=== PATIENT | male | born 1970 | race Asian ===

== ENCOUNTER 2017-06-06 01:50 | Emergency (ER) | payer MEDICAID ==
[~2017-06-06] VITALS: Ht 170.2 cm; Wt 77.1 kg
[~2017-06-06 01:50] MED LIST: ACETAMINOPHEN-1 EAC1 ORAL; HUMATE P IV; KEFLEX500 MG ORAL; NORCO 5-325 TA1 EACH ORAL; RANITIDINE HCL150 MG ORAL
[2017-06-06] MEDS ORDERED: Morphine Sulfate 4mg/ml Inj IVP ONE (02:15)
--- NOTE | 2017-06-06 02:16 | Emergency Room Report ---
History of Present Illness General Chief Complaint: Abdominal Pain Source: Patient Present Illness HPI Is a 47 year-old [place] male with chief complaint of epigastric pain onset this afternoon/evening. Radiate to his back. Has nausea and vomiting. No diarrhea. Pain is 10 out of 10. Denies any fever or chills. Denies any chest pain. 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 Review of Systems Eye: Denies: eye pain, blurred vision ENT: Denies: ear pain, nose congestion, throat swelling Respiratory: Denies: cough, shortness of breath Cardiovascular: Denies: chest pain, palpitations Gastrointestinal: Reports: abdominal pain, nausea, vomiting, Denies: diarrhea Musculoskeletal: Denies: back pain, joint pain Skin: Denies: rash Neurological: Denies: headache, numbness Endocrine: Denies: increased thirst, increased urine Hematologic/Lymphatic: Denies: easy bruising All Other Systems: negative except mentioned in HPI Physical Exam Vital Signs Date Time Temp Pulse Resp B/P (MAP) Pulse Ox O2 Delivery O2 Flow Rate FiO2 06/06/17 01:56 97.2 73 16 114/81 99 Room Air vitals normal Sp02 EP Interpretation: reviewed, normal General Appearance: well appearing, no apparent distress, alert Head: normocephalic, atraumatic Eyes: bilateral eye PERRL, bilateral eye EOMI ENT: hearing grossly normal, normal pharynx Neck: full range of motion, supple, no meningismus Respiratory: chest non-tender, lungs clear, normal breath sounds Cardiovascular #1: regular rate, rhythm, no murmur Gastrointestinal: normal bowel sounds, no mass, no organomegaly, no bruit, non- distended, tenderness - Epigastric and right upper quadrant Musculoskeletal: back normal, gait/station normal, normal range of motion Psychiatric: mood/affect normal Skin: warm/dry Medical Decision Making Diagnostic Impression: Primary Impression: Cholelithiasis Qualified Codes: K80.21 - Calculus of gallbladder without cholecystitis with obstruction ER Course Patient presents with right upper quadrant pain. He has gallstones. Elevated bilirubin and AST and ALT. This point toward possible obstruction and irritation. He may have passed a small stone already because he is pain-free now. Because of pain resolved we'll discharge home. No evidence of cholecystitis. No evidence of an acute abdomen. Lab Results Impression labs with elevated liver enzyme CT/MRI/US Diagnostic Results CT/MRI/US Diagnostic Results : Imaging Test Ordered: CT abdomen and pelvis Impression Read by radiologist. Multiple gallstone. Fatty liver. Last Vital Signs Date Time Temp Pulse Resp B/P (MAP) Pulse Ox O2 Delivery O2 Flow Rate FiO2 06/06/17 01:56 97.2 73 16 114/81 99 Room Air Status: improved Disposition: HOME, SELF-CARE Condition: Stable Scripts Hydrocodone/Acetaminophen 5-325* (HYDROCODONE/ACETAMINOPHEN 5-325*) 1 Each Tablet 1 TAB ORAL Q6H Y for For Pain, #15 TAB 0 Refills Prov: RIVERA CLARKE M.D. 06/06/17 Additional Instructions: Followup with your DrBenson within 5-7 days. Return for increasing pain, fever, vomiting or any concern. RIVERA CLARKE M.D. Jun 06, 2017 02:16
[2017-06-06 02:38] VITALS: BP 114/81
[2017-06-06 02:50] LABS: BASOPHILS % (AUTO) 0.5 % (0.0-2.0); EOSINOPHILS % (AUTO) 0.7 % (0.0-3.0); HEMATOCRIT 50.1 % (42.0-52.0); HEMOGLOBIN 16.5 G/DL (14.2-18.0); LYMPHOCYTES % (AUTO) 28.6 % (20.0-45.0); MEAN CORPUSCULAR VOLUME 85 FL (80-99); MONOCYTES % (AUTO) 9.5 % (1.0-10.0); NEUTROPHILS % (AUTO) 60.8 % (45.0-75.0); PLATELET COUNT 200 K/UL (150-450); RED BLOOD COUNT 5.92 M/UL (4.70-6.10); WHITE BLOOD COUNT 5.6 K/UL (4.8-10.8)
[2017-06-06 02:50] LABS: APPEARANCE,URINE CLEAR; BILIRUBIN, URINE NEGATIVE (NEGATIVE); GLUCOSE, URINE (UA) NEGATIVE (NEGATIVE); KETONES,URINE NEGATIVE (NEGATIVE); LEUKOCYTE ESTERASE ,URINE NEGATIVE (NEGATIVE); NITRITE,URINE NEGATIVE (NEGATIVE); PH,URINE 6.5 (4.5-8.0); PROTEIN,URINE 1+ (NEGATIVE); UROBILINOGEN,URINE 4 MG/DL (0.0-1.0)
[2017-06-06 02:57] LABS: COLOR,URINE YELLOW
[2017-06-06 03:04] LABS: ANION GAP 9 mmol/L (5-15); BLOOD UREA NITROGEN 13 mg/dL (7-18); CARBON DIOXIDE 26 MMOL/L (21-32); CHLORIDE 105 MMOL/L (98-107); CREATININE 0.8 MG/DL (0.55-1.30); POTASSIUM 4.1 MMOL/L (3.5-5.1); SODIUM 140 MMOL/L (136-145)
[2017-06-06 03:13] LABS: ALANINE AMINOTRANSFERASE 385 U/L (12-78); ALKALINE PHOSPHATASE 109 U/L (46-116); ASPARTATE AMINO TRANSFERASE 425 U/L (15-37); BILIRUBIN,TOTAL 1.8 MG/DL (0.2-1.0)
[2017-06-06 03:16] LABS: BILIRUBIN,DIRECT 0.8 MG/DL (0.0-0.3)
[2017-06-06] MEDS ORDERED: HYDROCODON-ACE1 EA15 ORAL (04:21)
[2017-06-06 04:44] VITALS: BP 111/77
--- NOTE | 2017-06-06 09:33 | Diagnostic Imaging Report ---
Indication: Abdominal pain Technique: CT of the abdomen and pelvis utilizing automated exposure control without intravenous or oral contrast. CT dose: Total DLP 1152.61 mGycm; CTDI vol 22.48 mGy Comparison: 02/18/2016 Findings: Note that evaluation of the abdominal and pelvic viscera is limited without the use of intravenous and oral contrast. Within these limitations the following observations are made: There is dependent atelectasis in the lung bases. Heart size within normal limits. Multiple calcified gallstones are noted within a mildly distended gallbladder. There is possibly layering high attenuation gallbladder sludge. No appreciable pericholecystic inflammatory change however evaluation limited without IV contrast. The liver is slightly heterogeneous in attenuation. Liver contour is smooth. Noncontrast evaluation of the spleen, adrenal glands and pancreas grossly unremarkable. Kidneys are symmetric in size. There is very mild nonspecific perinephric stranding. This was seen previously. No urinary tract stones or hydronephrosis seen bilaterally. There is under distention versus thickening of the bladder wall. Prostate contains a central calcification and is not markedly enlarged. There is no free intraperitoneal air. No ascites. The stomach is mildly distended with ingested material. There is no bowel obstruction. Appendix is normal. There is a tiny fat-containing umbilical hernia and small fat-containing left inguinal hernia. There are mild degenerative changes of the spine. There is unchanged linear density anterior to the right femur which may be sequela of prior injury. No acute osseous abnormality appreciated. IMPRESSION: Limited evaluation without intravenous and oral contrast. Within these limitations: Cholelithiasis in a mildly distended gallbladder. No definite CT evidence to suggest acute cholecystitis. Consider right upper quadrant ultrasound for further evaluation as clinically indicated. Mildly heterogeneous appearance of the liver, with scattered areas of low-attenuation. This raises question for fatty liver. Additional etiologies not excluded. Further evaluation recommended as clinically indicated. No bowel obstruction. Appendix is normal. Thickening versus underdistention of the bladder. This essentially corresponds with the statrad preliminary report. The CT scanner at [facility] is accredited by the [employer] and the scans are performed using protocols designed to limit radiation exposure to as low as reasonably achievable to attain images of sufficient resolution adequate for diagnostic evaluation.
== END 2017-06-06 04:44 | disposition home or self-care (01) ==
LOC: EMR 02:05
DX: K80.21 Calculus of gallbladder without cholecystitis with obstruction (principal); I69.854 Hemiplegia and hemiparesis following other cerebrovascular disease affecting left non-dominant side
CPT/HCPCS: 36415; 74176; 80053; 81003; 82248; 83690; 85025; 96374; 96375; 99284; J2270; J2405

== ENCOUNTER 2017-06-08 19:48 | Inpatient (IN) | payer MEDICAID ==
[~2017-06-08] VITALS: Ht 170.2 cm; Wt 77.1 kg
[~2017-06-08 19:48] MED LIST changes: +HYDROCODON-ACE1 EA15 ORAL
[2017-06-08] MEDS ORDERED: Sodium Chloride 500ML 500 ML IV ONE (20:58)
[2017-06-08] MEDS ORDERED: Dicyclomine HCl 10mg/5ml oral soln ORAL ONE (21:00)
[2017-06-08] MEDS ORDERED: Lidocaine 2% Visc 15ml soln ORAL ONE (21:00)
[2017-06-08] MEDS ORDERED: Mylanta II UD 30ml ORAL ONE (21:00)
[2017-06-08 21:13] LABS: BASOPHILS % (AUTO) 1.3 % (0.0-2.0); EOSINOPHILS % (AUTO) 3.5 % (0.0-3.0); HEMATOCRIT 47.9 % (42.0-52.0); HEMOGLOBIN 15.7 G/DL (14.2-18.0); LYMPHOCYTES % (AUTO) 42.3 % (20.0-45.0); MEAN CORPUSCULAR VOLUME 86 FL (80-99); MONOCYTES % (AUTO) 11.1 % (1.0-10.0); NEUTROPHILS % (AUTO) 41.9 % (45.0-75.0); PLATELET COUNT 218 K/UL (150-450); RED BLOOD COUNT 5.55 M/UL (4.70-6.10); RED CELL DISTRIBUTION WIDTH 11.5 % (11.6-14.8)
[2017-06-08 21:28] LABS: ANION GAP 10 mmol/L (5-15); BLOOD UREA NITROGEN 9 mg/dL (7-18); CARBON DIOXIDE 25 MMOL/L (21-32); CHLORIDE 108 MMOL/L (98-107); CREATININE 0.7 MG/DL (0.55-1.30); POTASSIUM 3.7 MMOL/L (3.5-5.1); SODIUM 143 MMOL/L (136-145)
[2017-06-08 21:30] LABS: ALANINE AMINOTRANSFERASE 408 U/L (12-78); ALBUMIN 3.7 G/DL (3.4-5.0); ALKALINE PHOSPHATASE 131 U/L (46-116); ASPARTATE AMINO TRANSFERASE 77 U/L (15-37); BILIRUBIN,TOTAL 0.9 MG/DL (0.2-1.0)
[2017-06-08 21:51] LABS: BILIRUBIN, URINE NEGATIVE (NEGATIVE); GLUCOSE, URINE (UA) NEGATIVE (NEGATIVE); KETONES,URINE NEGATIVE (NEGATIVE); LEUKOCYTE ESTERASE ,URINE NEGATIVE (NEGATIVE); NITRITE,URINE NEGATIVE (NEGATIVE); PH,URINE 8 (4.5-8.0); PROTEIN,URINE NEGATIVE (NEGATIVE); UROBILINOGEN,URINE 4 MG/DL (0.0-1.0)
[2017-06-08 21:54] LABS: COLOR,URINE YELLOW
[2017-06-08 21:55] LABS: APPEARANCE,URINE CLEAR
--- NOTE | 2017-06-08 22:02 | Emergency Room Report ---
History of Present Illness General Chief Complaint: Abdominal Pain Present Illness HPI The patient's 47-year-old male presented to increased abdominal pain. Patient gradual onset of symptoms. He reports having sharp epigastric pain which radiated to his back. Patient had prior history of factor VIII deficiency. Patient states that he had not been having any vomiting or bloody stools. He reports having sharp pain. He denies alcohol use. Patient reports having a recent visit in which he was diagnosed with gallstones. Pain did not radiate. Patient had not followed up with a general surgeon since last visit. 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 Review of Systems All Other Systems: negative except mentioned in HPI Physical Exam Vital Signs Date Time Temp Pulse Resp B/P (MAP) Pulse Ox O2 Delivery O2 Flow Rate FiO2 06/08/17 20:23 97.9 96 18 132/57 97 Room Air Sp02 EP Interpretation: reviewed, normal General Appearance: normal inspection, well appearing, no apparent distress, alert, GCS 15 Head: atraumatic ENT: normal ENT inspection, hearing grossly normal, normal voice Neck: normal inspection, full range of motion, supple, no bony tend Respiratory: normal inspection, lungs clear, normal breath sounds, no respiratory distress, no retraction, no wheezing Cardiovascular #1: regular rate, rhythm, no edema Gastrointestinal: normal inspection, normal bowel sounds, non tender, soft, no guarding, no hernia Genitourinary: no CVA tenderness Musculoskeletal: normal inspection, back normal, normal range of motion Neurologic: normal inspection, alert, oriented x3, responsive, 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 Differential diagnoses included ischemic bowel, appendicitis, perforated viscus, abdominal aortic aneurysm, inferior myocardial infarction, viral gastroenteritis Because of complexity of patient's case laboratory testing and imaging studies were ordered.Patient presented for abdominal pain. Differential diagnoses included ischemic bowel, appendicitis, perforated viscus, abdominal aortic aneurysm, inferior myocardial infarction, viral gastroenteritis Because of complexity of patient's case laboratory testing and imaging studies were ordered. Had EKG interpreted by me showed normal sinus rhythm with a rate of [address] changes. patient was noted to have prior CT imaging I which showed evidence of large gallbladder stones. The laboratory testing showed increased alkaline phosphatase from previous visit. WBC continued to be normal. The patient was noted to have hemophilia. Dr. Khan was contacted for inpatient management due to complexity of medical condition. Labs Test 06/08/17 20:32 06/08/17 20:35 06/08/17 21:00 White Blood Count 5.0 K/UL (4.8-10.8) Red Blood Count 5.55 M/UL (4.70-6.10) Hemoglobin 15.7 G/DL (14.2-18.0) Hematocrit 47.9 % (42.0-52.0) Mean Corpuscular Volume 86 FL (80-99) Mean Corpuscular Hemoglobin 28.3 PG (27.0-31.0) Mean Corpuscular Hemoglobin Concent 32.8 G/DL (32.0-36.0) Red Cell Distribution Width 11.5 % (11.6-14.8) Platelet Count 218 K/UL (150-450) Mean Platelet Volume 8.5 FL (6.5-10.1) Neutrophils (%) (Auto) 41.9 % (45.0-75.0) Lymphocytes (%) (Auto) 42.3 % (20.0-45.0) Monocytes (%) (Auto) 11.1 % (1.0-10.0) Eosinophils (%) (Auto) 3.5 % (0.0-3.0) Basophils (%) (Auto) 1.3 % (0.0-2.0) Sodium Level 143 MMOL/L (136-145) Potassium Level 3.7 MMOL/L (3.5-5.1) Chloride Level 108 MMOL/L (98-107) Carbon Dioxide Level 25 MMOL/L (21-32) Anion Gap 10 mmol/L (5-15) Blood Urea Nitrogen 9 mg/dL (7-18) Creatinine 0.7 MG/DL (0.55-1.30) Estimat Glomerular Filtration Rate > 60 mL/min (>60) Glucose Level 97 MG/DL (74-106) Calcium Level 9.0 MG/DL (8.5-10.1) Total Bilirubin 0.9 MG/DL (0.2-1.0) Aspartate Amino Transf (AST/SGOT) 77 U/L (15-37) Alanine Aminotransferase (ALT/SGPT) 408 U/L (12-78) Alkaline Phosphatase 131 U/L (46-116) Troponin I 0.000 ng/mL (0.000-0.056) Total Protein 7.5 G/DL (6.4-8.2) Albumin 3.7 G/DL (3.4-5.0) Globulin 3.8 g/dL Albumin/Globulin Ratio 1.0 (1.0-2.7) Lipase 236 U/L (73-393) Urine Color Yellow Urine Appearance Clear Urine pH 8 (4.5-8.0) Urine Specific [place] 1.015 (1.005-1.035) Urine Protein Negative (NEGATIVE) Urine Glucose (UA) Negative (NEGATIVE) Urine Ketones Negative (NEGATIVE) Urine Occult Blood Negative (NEGATIVE) Urine Nitrite Negative (NEGATIVE) Urine Bilirubin Negative (NEGATIVE) Urine Urobilinogen 4 MG/DL (0.0-1.0) Urine Leukocyte Esterase Negative (NEGATIVE) Last Vital Signs Date Time Temp Pulse Resp B/P (MAP) Pulse Ox O2 Delivery O2 Flow Rate FiO2 06/08/17 20:23 97.9 96 18 132/57 97 Room Air Status: unchanged Disposition: ADMITTED INPATIENT Condition: Cruzito Cortez Jun 08, 2017 22:02
[2017-06-08 22:05] LABS: INR 0.9 (0.9-1.1)
[2017-06-08] MEDS ORDERED: Nitroglycerin Subl 0.4mg tab SL PRN (22:45)
[2017-06-08] MEDS ORDERED: Mylanta II UD 30ml ORAL PRN (22:45)
[2017-06-08] MEDS ORDERED: Miralax 17gm pkt ORAL PRN (22:45)
[2017-06-08 23:18] VITALS: BP 130/64
[2017-06-08] MEDS ORDERED: NKM (23:30)
[2017-06-09] VITALS: BP 124/83
[2017-06-09] MEDS: D5 1/2NS 1,000 ML IV SCH ×2 (00:33→12:19)
[2017-06-09] MEDS: Morphine Sulfate 2mg/ml Inj IVP PRN ×3 (00:49→13:56)
[2017-06-09 05:47] VITALS: BP 119/76
[2017-06-09 08:00] VITALS: BP 112/82
[2017-06-09 08:27] LABS: BASOPHILS % (AUTO) 1.5 % (0.0-2.0); EOSINOPHILS % (AUTO) 3.5 % (0.0-3.0); HEMATOCRIT 44.3 % (42.0-52.0); HEMOGLOBIN 14.6 G/DL (14.2-18.0); LYMPHOCYTES % (AUTO) 40.1 % (20.0-45.0); MEAN CORPUSCULAR VOLUME 87 FL (80-99); MONOCYTES % (AUTO) 9.3 % (1.0-10.0); NEUTROPHILS % (AUTO) 45.6 % (45.0-75.0); PLATELET COUNT 184 K/UL (150-450); RED BLOOD COUNT 5.11 M/UL (4.70-6.10); RED CELL DISTRIBUTION WIDTH 11.7 % (11.6-14.8); WHITE BLOOD COUNT 5.2 K/UL (4.8-10.8)
[2017-06-09] MEDS: Morphine Sulfate 2mg/ml Inj IVP ONE ×2 (08:30→15:30)
[2017-06-09 08:54] LABS: ALANINE AMINOTRANSFERASE 319 U/L (12-78); ALBUMIN 3.2 G/DL (3.4-5.0); ALBUMIN/GLOBULIN RATIO 0.9 (1.0-2.7); ALKALINE PHOSPHATASE 108 U/L (46-116); AMYLASE 31 U/L (25-115); ANION GAP 8 mmol/L (5-15); ASPARTATE AMINO TRANSFERASE 59 U/L (15-37); BILIRUBIN,TOTAL 1.1 MG/DL (0.2-1.0); BLOOD UREA NITROGEN 8 mg/dL (7-18); CALCIUM 8.3 MG/DL (8.5-10.1); CARBON DIOXIDE 27 MMOL/L (21-32); CHLORIDE 109 MMOL/L (98-107); CREATININE 0.6 MG/DL (0.55-1.30); POTASSIUM 3.6 MMOL/L (3.5-5.1); SODIUM 144 MMOL/L (136-145)
[2017-06-09 08:56] LABS: BILIRUBIN,DIRECT 0.2 MG/DL (0.0-0.3)
[2017-06-09] MEDS ORDERED: Heparin 5000 units/ml inj SUBQ SCH (09:00)
[2017-06-09] MEDS: Pantoprazole Inj IVP SCH (09:50)
--- NOTE | 2017-06-09 11:12 | Consultation ---
History of Present Illness General Date patient seen: Jun 09, 2017 Time patient seen: 11:03 Chief Complaint: Abdominal Pain Present Illness HPI 47 y/o M with hx of GERD, cholelithiasis, pyelonephritis, CVA with L side weakness, factor VIII deficiency presents to ED on 06/08 with increasing epigastric pain with radiation to back. Denies vomiting, melena/hematochezia, alcohol use, diarrhea, urinary symtomps. Abd us pending. Afebrile, no leukocytosis. Allergies: Coded Allergies: No Known Allergies (Unverified , 07/18/13) Medication History Scheduled No Known Medications* (NKM - No Known Medications*), 0 ., (Reported) Scheduled PRN Hydrocodone/Acetaminophen 5-325* (Hydrocodone/Acetaminophen 5-325*), 1 TAB ORAL Q6H PRN for For Pain Discontinued Medications Acetaminophen With Codeine (T#3) (Tylenol #3 Tab*), 1 TAB ORAL Q8H PRN for For Pain Discontinued Reason: Therapy completed Antihemophilic Factor/Vwf (Humate-P 2,400 Unit Vwf:Rco), 1 EACH IV, (Reported) Discontinued Reason: Therapy completed Cephalexin* (Keflex*), 500 MG ORAL Q6H Discontinued Reason: Therapy completed Hydrocodone Bit/Acetaminophen 5-325* ([place] 5-325*), 1 TAB ORAL Q6H PRN for For Pain Discontinued Reason: Therapy completed Ranitidine Hcl* (Zantac*), 150 MG ORAL TWICE A DAY Discontinued Reason: Therapy completed Patient History Healthcare decision maker Resuscitation status Full Code Advanced Directive on File Patient History Narrative PMhx: as above Shx: reviewed Fhx: non contributory Review of Systems All Other Systems: negative except mentioned in HPI Physical Exam Physical Exam Narrative General Appearance: normal inspection, well appearing, no apparent distress, alert HEENT: atraumaticnormal ENT inspection, hearing grossly normal, normal voice Neck: normal inspection, full range of motion, supple, no bony tend Respiratory: normal inspection, lungs clear, normal breath sounds, no respiratory distress, no retraction, no wheezing Cardiovascular : regular rate, rhythm, no edema Gastrointestinal: mild TTP epigastric area, no RUQ tenderness, neg Nicole's sign Genitourinary: no CVA tenderness Musculoskeletal: normal inspection, back normal, normal range of motion Neurologic: normal inspection, alert, oriented x3, responsive, 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, speech normal Psychiatric: normal inspection, judgement/insight normal, mood/affect normal Skin: other - bruising to extremities Last 24 Hour Vital Signs Date Time Temp Pulse Resp B/P (MAP) Pulse Ox O2 Delivery O2 Flow Rate FiO2 06/09/17 08:00 96.3 62 20 112/82 98 06/09/17 05:47 97.8 70 18 119/76 97 Room Air 06/09/17 00:00 97.7 76 20 124/83 97 Room Air 06/08/17 23:30 97.9 90 18 130/64 97 Room Air 06/08/17 23:18 97.9 90 18 130/64 97 Room Air 06/08/17 20:23 97.9 96 18 132/57 97 Room Air Intake and Output 06/08/17 06/09/17 19:00 07:00 Intake Total 975 ml Balance 975 ml Intake Oral 0 ml IV Total 975 ml # Voids 1 Laboratory Tests Test 06/08/17 20:32 06/08/17 20:35 06/08/17 21:00 06/09/17 07:10 Prothrombin Time 9.5 SEC (9.30-11.50) Prothromb Time International Ratio 0.9 (0.9-1.1) Activated Partial Thromboplast Time 38 SEC (23-33) H 43 SEC (23-33) H White Blood Count 5.0 K/UL (4.8-10.8) 5.2 K/UL (4.8-10.8) Red Blood Count 5.55 M/UL (4.70-6.10) 5.11 M/UL (4.70-6.10) Hemoglobin 15.7 G/DL (14.2-18.0) 14.6 G/DL (14.2-18.0) Hematocrit 47.9 % (42.0-52.0) 44.3 % (42.0-52.0) Mean Corpuscular Volume 86 FL (80-99) 87 FL (80-99) Mean Corpuscular Hemoglobin 28.3 PG (27.0-31.0) 28.6 PG (27.0-31.0) Mean Corpuscular Hemoglobin Concent 32.8 G/DL (32.0-36.0) 33.0 G/DL (32.0-36.0) Red Cell Distribution Width 11.5 % (11.6-14.8) L 11.7 % (11.6-14.8) Platelet Count 218 K/UL (150-450) 184 K/UL (150-450) Mean Platelet Volume 8.5 FL (6.5-10.1) 8.9 FL (6.5-10.1) Neutrophils (%) (Auto) 41.9 % (45.0-75.0) L 45.6 % (45.0-75.0) Lymphocytes (%) (Auto) 42.3 % (20.0-45.0) 40.1 % (20.0-45.0) Monocytes (%) (Auto) 11.1 % (1.0-10.0) H 9.3 % (1.0-10.0) Eosinophils (%) (Auto) 3.5 % (0.0-3.0) H 3.5 % (0.0-3.0) H Basophils (%) (Auto) 1.3 % (0.0-2.0) 1.5 % (0.0-2.0) Sodium Level 143 MMOL/L (136-145) 144 MMOL/L (136-145) Potassium Level 3.7 MMOL/L (3.5-5.1) 3.6 MMOL/L (3.5-5.1) Chloride Level 108 MMOL/L (98-107) H 109 MMOL/L (98-107) H Carbon Dioxide Level 25 MMOL/L (21-32) 27 MMOL/L (21-32) Anion Gap 10 mmol/L (5-15) 8 mmol/L (5-15) Blood Urea Nitrogen 9 mg/dL (7-18) 8 mg/dL (7-18) Creatinine 0.7 MG/DL (0.55-1.30) 0.6 MG/DL (0.55-1.30) Estimat Glomerular Filtration Rate > 60 mL/min (>60) > 60 mL/min (>60) Glucose Level 97 MG/DL (74-106) 90 MG/DL (74-106) Calcium Level 9.0 MG/DL (8.5-10.1) 8.3 MG/DL (8.5-10.1) L Total Bilirubin 0.9 MG/DL (0.2-1.0) 1.1 MG/DL (0.2-1.0) H Aspartate Amino Transf (AST/SGOT) 77 U/L (15-37) H 59 U/L (15-37) H Alanine Aminotransferase (ALT/SGPT) 408 U/L (12-78) H 319 U/L (12-78) H Alkaline Phosphatase 131 U/L (46-116) H 108 U/L (46-116) Troponin I 0.000 ng/mL (0.000-0.056) Total Protein 7.5 G/DL (6.4-8.2) 6.6 G/DL (6.4-8.2) Albumin 3.7 G/DL (3.4-5.0) 3.2 G/DL (3.4-5.0) L Globulin 3.8 g/dL 3.4 g/dL Albumin/Globulin Ratio 1.0 (1.0-2.7) 0.9 (1.0-2.7) L Lipase 236 U/L (73-393) 164 U/L (73-393) Urine Color Yellow Urine Appearance Clear Urine pH 8 (4.5-8.0) Urine Specific [place] 1.015 (1.005-1.035) Urine Protein Negative (NEGATIVE) Urine Glucose (UA) Negative (NEGATIVE) Urine Ketones Negative (NEGATIVE) Urine Occult Blood Negative (NEGATIVE) Urine Nitrite Negative (NEGATIVE) Urine Bilirubin Negative (NEGATIVE) Urine Urobilinogen 4 MG/DL (0.0-1.0) H Urine Leukocyte Esterase Negative (NEGATIVE) Direct Bilirubin 0.2 MG/DL (0.0-0.3) Amylase Level 31 U/L (25-115) Height (Feet): 5 Height (Inches): 7.00 Weight (Pounds): 170 Medications Current Medications Medications (Trade) Dose Ordered Sig/Candelario Route PRN Reason Start Time Stop Time Status Last Admin Dose Admin Acetaminophen (Tylenol) 650 mg Q4H PRN ORAL fever 06/08/17 22:45 07/08/17 22:44 Al Hydroxide/Mg Hydroxide (Mylanta II) 30 ml Q6H PRN ORAL dyspepsia 06/08/17 22:45 07/08/17 22:44 Dextrose (Dextrose 50%) STAT PRN IV Hypoglycemia 06/08/17 22:45 07/08/17 22:44 Dextrose/Sodium Chloride 1,000 ml @ 75 mls/hr [id number] IV 06/08/17 22:39 07/08/17 22:38 06/09/17 00:33 Diphenhydramine HCl (Benadryl) 25 mg Q6H PRN ORAL Itching/Pruritis 06/08/17 22:45 07/08/17 22:44 Morphine Sulfate (Morphine Sulfate) 2 mg Q4H PRN IVP severe Pain (Pain Scale 7-10) 06/08/17 22:45 06/15/17 22:44 06/09/17 09:50 Nitroglycerin (Ntg) 0.4 mg Q5M X 3 DOSES PRN SL Prn Chest Pain 06/08/17 22:45 07/08/17 22:44 Ondansetron HCl (Zofran) 4 mg Q6H PRN IVP Nausea & Vomiting 06/08/17 22:45 07/08/17 22:44 Pantoprazole (Protonix) 40 mg DAILY IVP 06/09/17 09:00 07/09/17 08:59 06/09/17 09:50 Polyethylene Glycol (Miralax) 17 gm HSPRN PRN ORAL Constipation 06/08/17 22:45 07/08/17 22:44 Temazepam (Restoril) 15 mg HSPRN PRN ORAL Insomnia 06/08/17 22:45 06/15/17 22:44 Assessment/Plan Assessment/Plan Abx: None Assessment: Epigastric pain- r/o cholecystitis, gastritis, acute viral hepatitis -Abd US p -CT abd/p 06/06: Limited evaluation without intravenous and oral contrast. Within these limitations:Cholelithiasis in a mildly distended gallbladder. No definite CT evidence to suggest acute cholecystitis. Consider right upper quadrant ultrasound for further evaluation as clinically indicated. Mildly heterogeneous appearance of the liver, with scattered areas of low-attenuation. This raises question for fatty liver. Additional etiologies not excluded. Further evaluation recommended as clinically indicated. 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 -f/u abd us -check acute hep panel -f/u cx -Monitor CBC/BMP, temperatures Thank you for this consultation. Will continue to follow along with you. Discussed with LUIS. Sera Mittal M.D. Jun 09, 2017 11:12
[2017-06-09 11:46] VITALS: BP 120/81
--- NOTE | 2017-06-09 13:30 | Consultation ---
History of Present Illness General Date patient seen: Jun 09, 2017 Chief Complaint: Abdominal Pain Reason for Consultation: abdominal pain Present Illness HPI 47M otherwise well states that a few days ago he began to develop upper epigastric abdominal pain. States that it first began when he was at shinto this past weekend. His sh[employer] friends attempted acupuncture and massage and pain improved so he went home but later that night pain returned severe and he came to urgent care. Had CT scan and labs and no acute abnormality found so he was given pain meds and discharged home. pain persisted so he came back for evaluation and was admitted for pain control and further work up. states pain 10 /10 at max, epigastric with radiation to the upper back. +nausea, +flatus, + BM. no prior episodes. on CT scan was noted to have cholelithiasis. surgery called to evaluate abdominal pain. patient seen, records reviewed, labs reviewed. Allergies: Coded Allergies: No Known Allergies (Unverified , 07/18/13) Medication History Scheduled No Known Medications* (NKM - No Known Medications*), 0 ., (Reported) Scheduled PRN Hydrocodone/Acetaminophen 5-325* (Hydrocodone/Acetaminophen 5-325*), 1 TAB ORAL Q6H PRN for For Pain Discontinued Medications Acetaminophen With Codeine (T#3) (Tylenol #3 Tab*), 1 TAB ORAL Q8H PRN for For Pain Discontinued Reason: Therapy completed Antihemophilic Factor/Vwf (Humate-P 2,400 Unit Vwf:Rco), 1 EACH IV, (Reported) Discontinued Reason: Therapy completed Cephalexin* (Keflex*), 500 MG ORAL Q6H Discontinued Reason: Therapy completed Hydrocodone Bit/Acetaminophen 5-325* ([place] 5-325*), 1 TAB ORAL Q6H PRN for For Pain Discontinued Reason: Therapy completed Ranitidine Hcl* (Zantac*), 150 MG ORAL TWICE A DAY Discontinued Reason: Therapy completed Patient History History Provided By: Patient, Medical Record Healthcare decision maker Resuscitation status Full Code Advanced Directive on File Past Medical/Surgical History Past Medical/Surgical History: (1) Left leg pain (2) Gastritis (3) Pyelonephritis (4) Abdominal pain (5) Factor VIII deficiency hemophilia (6) Symptomatic cholelithiasis Review of Systems Constitutional: Denies: no symptoms, see HPI, chills, sweats, fever, malaise, weakness, other Eye: Denies: no symptoms, see HPI, eye pain, blurred vision, tearing, double vision, nose pain, nose congestion, acuity changes, discharge, other ENT: Denies: no symptoms, see HPI, ear pain, ear discharge, nose pain, nose congestion, throat pain, throat swelling, mouth pain, hearing loss, nasal discharge, other Respiratory: Denies: no symptoms, see HPI, cough, orthopnea, shortness of breath, stridor, wheezing, PATHAK, sputum, other Cardiovascular: Denies: no symptoms, see HPI, chest pain, edema, palpitations, syncope, PND, other Gastrointestinal: Reports: abdominal pain, nausea Genitourinary: Denies: no symptoms, see HPI, discharge, dysuria, frequency, hematuria, pain, retention, incontinence, urgency, vag bleed/dc, other Musculoskeletal: Denies: no symptoms, see HPI, back pain, gout, joint pain, joint swelling, muscle pain, muscle stiffness, other Skin: Denies: no symptoms, see HPI, rash, change in color, change in hair/nails , dryness, lesions, other Psychiatric: Denies: no symptoms, see HPI, prior hx, anxiety, depressed feelings, emotional problems, SI, HI, hallucinations, other Neurological: Denies: no symptoms, see HPI, headache, numbness, paresthesia, seizure, tingling, tremors, focal weakness, syncope, dizziness, other Endocrine: Denies: no symptoms, see HPI, excessive sweating, flushing, intolerance to temperature, increased thirst, increased urine, unexplained weight loss, other Hematologic/Lymphatic: Denies: no symptoms, see HPI, anemia, blood clots, easy bleeding, easy bruising, swollen glands, diathesis, other Physical Exam General Appearance: WD/WN, no apparent distress, alert Lines, tubes and drains: peripheral HEENT: normocephalic, atraumatic, mucous membranes moist Neck: supple, normal inspection Respiratory/Chest: normal breath sounds, no respiratory distress, no accessory muscle use Cardiovascular/Chest: normal peripheral pulses, normal rate Abdomen: normal bowel sounds, non tender, soft, no organomegaly, no mass, distended Extremities: normal inspection Skin Exam: warm/dry Neurologic: alert, oriented x 3, responsive Last 24 Hour Vital Signs Date Time Temp Pulse Resp B/P (MAP) Pulse Ox O2 Delivery O2 Flow Rate FiO2 06/09/17 11:46 97.5 60 20 120/81 96 06/09/17 08:00 96.3 62 20 112/82 98 06/09/17 05:47 97.8 70 18 119/76 97 Room Air 06/09/17 00:00 97.7 76 20 124/83 97 Room Air 06/08/17 23:30 97.9 90 18 130/64 97 Room Air 06/08/17 23:18 97.9 90 18 130/64 97 Room Air 06/08/17 20:23 97.9 96 18 132/57 97 Room Air Intake and Output 06/08/17 06/09/17 19:00 07:00 Intake Total 975 ml Balance 975 ml Intake Oral 0 ml IV Total 975 ml # Voids 1 Laboratory Tests Test 06/08/17 20:32 06/08/17 20:35 06/08/17 21:00 06/09/17 07:10 Prothrombin Time 9.5 SEC (9.30-11.50) Prothromb Time International Ratio 0.9 (0.9-1.1) Activated Partial Thromboplast Time 38 SEC (23-33) H 43 SEC (23-33) H White Blood Count 5.0 K/UL (4.8-10.8) 5.2 K/UL (4.8-10.8) Red Blood Count 5.55 M/UL (4.70-6.10) 5.11 M/UL (4.70-6.10) Hemoglobin 15.7 G/DL (14.2-18.0) 14.6 G/DL (14.2-18.0) Hematocrit 47.9 % (42.0-52.0) 44.3 % (42.0-52.0) Mean Corpuscular Volume 86 FL (80-99) 87 FL (80-99) Mean Corpuscular Hemoglobin 28.3 PG (27.0-31.0) 28.6 PG (27.0-31.0) Mean Corpuscular Hemoglobin Concent 32.8 G/DL (32.0-36.0) 33.0 G/DL (32.0-36.0) Red Cell Distribution Width 11.5 % (11.6-14.8) L 11.7 % (11.6-14.8) Platelet Count 218 K/UL (150-450) 184 K/UL (150-450) Mean Platelet Volume 8.5 FL (6.5-10.1) 8.9 FL (6.5-10.1) Neutrophils (%) (Auto) 41.9 % (45.0-75.0) L 45.6 % (45.0-75.0) Lymphocytes (%) (Auto) 42.3 % (20.0-45.0) 40.1 % (20.0-45.0) Monocytes (%) (Auto) 11.1 % (1.0-10.0) H 9.3 % (1.0-10.0) Eosinophils (%) (Auto) 3.5 % (0.0-3.0) H 3.5 % (0.0-3.0) H Basophils (%) (Auto) 1.3 % (0.0-2.0) 1.5 % (0.0-2.0) Sodium Level 143 MMOL/L (136-145) 144 MMOL/L (136-145) Potassium Level 3.7 MMOL/L (3.5-5.1) 3.6 MMOL/L (3.5-5.1) Chloride Level 108 MMOL/L (98-107) H 109 MMOL/L (98-107) H Carbon Dioxide Level 25 MMOL/L (21-32) 27 MMOL/L (21-32) Anion Gap 10 mmol/L (5-15) 8 mmol/L (5-15) Blood Urea Nitrogen 9 mg/dL (7-18) 8 mg/dL (7-18) Creatinine 0.7 MG/DL (0.55-1.30) 0.6 MG/DL (0.55-1.30) Estimat Glomerular Filtration Rate > 60 mL/min (>60) > 60 mL/min (>60) Glucose Level 97 MG/DL (74-106) 90 MG/DL (74-106) Calcium Level 9.0 MG/DL (8.5-10.1) 8.3 MG/DL (8.5-10.1) L Total Bilirubin 0.9 MG/DL (0.2-1.0) 1.1 MG/DL (0.2-1.0) H Aspartate Amino Transf (AST/SGOT) 77 U/L (15-37) H 59 U/L (15-37) H Alanine Aminotransferase (ALT/SGPT) 408 U/L (12-78) H 319 U/L (12-78) H Alkaline Phosphatase 131 U/L (46-116) H 108 U/L (46-116) Troponin I 0.000 ng/mL (0.000-0.056) Total Protein 7.5 G/DL (6.4-8.2) 6.6 G/DL (6.4-8.2) Albumin 3.7 G/DL (3.4-5.0) 3.2 G/DL (3.4-5.0) L Globulin 3.8 g/dL 3.4 g/dL Albumin/Globulin Ratio 1.0 (1.0-2.7) 0.9 (1.0-2.7) L Lipase 236 U/L (73-393) 164 U/L (73-393) Urine Color Yellow Urine Appearance Clear Urine pH 8 (4.5-8.0) Urine Specific [place] 1.015 (1.005-1.035) Urine Protein Negative (NEGATIVE) Urine Glucose (UA) Negative (NEGATIVE) Urine Ketones Negative (NEGATIVE) Urine Occult Blood Negative (NEGATIVE) Urine Nitrite Negative (NEGATIVE) Urine Bilirubin Negative (NEGATIVE) Urine Urobilinogen 4 MG/DL (0.0-1.0) H Urine Leukocyte Esterase Negative (NEGATIVE) Direct Bilirubin 0.2 MG/DL (0.0-0.3) Amylase Level 31 U/L (25-115) Height (Feet): 5 Height (Inches): 7.00 Weight (Pounds): 170 Medications Current Medications Medications (Trade) Dose Ordered Sig/Candelario Route PRN Reason Start Time Stop Time Status Last Admin Dose Admin Acetaminophen (Tylenol) 650 mg Q4H PRN ORAL fever 06/08/17 22:45 07/08/17 22:44 Al Hydroxide/Mg Hydroxide (Mylanta II) 30 ml Q6H PRN ORAL dyspepsia 06/08/17 22:45 07/08/17 22:44 Dextrose (Dextrose 50%) STAT PRN IV Hypoglycemia 06/08/17 22:45 07/08/17 22:44 Dextrose/Sodium Chloride 1,000 ml @ 75 mls/hr [id number] IV 06/08/17 22:39 07/08/17 22:38 06/09/17 12:19 Diphenhydramine HCl (Benadryl) 25 mg Q6H PRN ORAL Itching/Pruritis 06/08/17 22:45 07/08/17 22:44 Morphine Sulfate (Morphine Sulfate) 2 mg Q4H PRN IVP severe Pain (Pain Scale 7-10) 06/08/17 22:45 06/15/17 22:44 06/09/17 09:50 Nitroglycerin (Ntg) 0.4 mg Q5M X 3 DOSES PRN SL Prn Chest Pain 06/08/17 22:45 07/08/17 22:44 Ondansetron HCl (Zofran) 4 mg Q6H PRN IVP Nausea & Vomiting 06/08/17 22:45 07/08/17 22:44 Pantoprazole (Protonix) 40 mg DAILY IVP 06/09/17 09:00 07/09/17 08:59 06/09/17 09:50 Polyethylene Glycol (Miralax) 17 gm HSPRN PRN ORAL Constipation 06/08/17 22:45 07/08/17 22:44 Temazepam (Restoril) 15 mg HSPRN PRN ORAL Insomnia 06/08/17 22:45 06/15/17 22:44 Assessment/Plan Problem List: (1) Symptomatic cholelithiasis ICD Codes: K80.20 - Calculus of gallbladder without cholecystitis without obstruction SNOMED: 444844374, [id number] (2) Abdominal pain Assessment & Plan: 47M with abdominal pain. CT scan demonstrated gallstones. labs with elevated lft's but normal wbc. afebrile, HD stable, exam benign. -Ultrasound to evaluate gallbladder, gb wall, and biliary tract -trend labs -may consider HIDA based on Ultrasound findings. -fortunately pain improving at this time and he is getting better. will follow with recs as results available. thank you for this consultation. ICD Codes: R10.9 - Unspecified abdominal pain SNOMED: 28319183, [id number] Qualifiers: Qualified Codes: R10.13 - Epigastric pain Status: stable Cesar Kim Jun 09, 2017 13:30
--- NOTE | 2017-06-09 15:03 | Diagnostic Imaging Report ---
Indication: Abdominal pain Technique: Gonzalez-scale and duplex images of the upper abdomen were obtained Comparison: Findings: Gallbladder demonstrates gallstones. No also demonstrates some sludge. The gallbladder was wall was not thickened, but there is a small amount of pericholecystic fluid Common bile duct measures 5 mm in diameter. No intrahepatic biliary ductal dilatation. Liver demonstrates diffusely increased echogenicity, consistent with diffuse hepatocellular disease, most likely fatty change. Portal vein and hepatic veins are patent. Pancreas is unremarkable. Spleen is unremarkable. Left kidney measures 12 cm in length. Right kidney measures 12.4 cm length. Both kidneys demonstrate normal echogenicity. There is no hydronephrosis. No focal abnormality . Non-aneurysmal abdominal aorta . Impression: Cholelithiasis and gallbladder sludge. The gallbladder is wall is not thickened, but presence of some pericholecystic fluid does raise concern for acute cholecystitis. Consider nuclear medicine hepatobiliary scan if there is high clinical suspicion for such Negative for dilated ducts No other acute or significant findings
--- NOTE | 2017-06-09 15:11 | GI Initial Consult Note ---
History of Present Illness General Date patient seen: Jun 09, 2017 Time patient seen: 14:59 Reason for Hospitalization: Abdominal Pain Referring physician: CHYNA STARK Reason for Consultation: abdominal pain Present Illness HPI The patient's 47-year-old male presented to increased abdominal pain. Patient gradual onset of symptoms. He reports having sharp epigastric pain which radiated to his back. Patient had prior history of factor VIII deficiency. Patient states that he had not been having any vomiting or bloody stools. He reports having sharp pain. He denies alcohol use. Patient reports having a recent visit in which he was diagnosed with gallstones. Pain did not radiate. Patient had not followed up with a general surgeon since last visit. GI consulted for abdominal pain. HPI noted above. Patient seen on floor, awake A&Ox4 NAD c/o of severe localized epigastric pain, worse at night, non tender to touch. No history of EGD. Presents today with transaminitis and elevated alkaline phosphatase. States he recently been dx with gallstones. Denies any N/V/D. Home Meds Active Scripts Hydrocodone/Acetaminophen 5-325* (HYDROCODONE/ACETAMINOPHEN 5-325*) 1 Each Tablet, 1 TAB ORAL Q6H Y for For Pain, #15 TAB 0 Refills Prov:RIVERA CLARKE M.D. 06/06/17 Reported Medications No Known Medications* (NKM - No Known Medications*) ., 0 ., 0 Refills 06/08/17 Discontinued Reported Medications Antihemophilic Factor/Vwf (HUMATE-P 2,400 UNIT VWF:RCO) 1 Each Kit, 1 EACH IV, KIT 01/09/16 Discontinued Scripts Acetaminophen With Codeine (T#3) (TYLENOL #3 TAB*) Y Tab, 1 TAB ORAL Q8H Y for For Pain, #20 TAB Prov:JORDAN MARSHALL M.D. 02/18/16 Cephalexin* (KEFLEX*) 500 Mg Capsule, 500 MG ORAL Q6H, #28 CAP 0 Refills Prov:JORDAN MARSHALL M.D. 02/18/16 Ranitidine Hcl* (ZANTAC*) 150 Mg Tablet, 150 MG ORAL TWICE A DAY, #30 TAB Prov:JORDAN MARSHALL M.D. 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 Social History: Denies: smoking, alcohol use, drug use, other Review of Systems All Other Systems: negative except mentioned in HPI Physical Exam Vital Signs Date Time Temp Pulse Resp B/P (MAP) Pulse Ox O2 Delivery O2 Flow Rate FiO2 06/08/17 20:23 97.9 96 18 132/57 97 Room Air Sp02 EP Interpretation: reviewed, normal Labs Laboratory Tests Test 06/08/17 20:32 06/08/17 20:35 06/08/17 21:00 06/09/17 07:10 Prothrombin Time 9.5 SEC (9.30-11.50) Prothromb Time International Ratio 0.9 (0.9-1.1) Activated Partial Thromboplast Time 38 SEC (23-33) H 43 SEC (23-33) H White Blood Count 5.0 K/UL (4.8-10.8) 5.2 K/UL (4.8-10.8) Red Blood Count 5.55 M/UL (4.70-6.10) 5.11 M/UL (4.70-6.10) Hemoglobin 15.7 G/DL (14.2-18.0) 14.6 G/DL (14.2-18.0) Hematocrit 47.9 % (42.0-52.0) 44.3 % (42.0-52.0) Mean Corpuscular Volume 86 FL (80-99) 87 FL (80-99) Mean Corpuscular Hemoglobin 28.3 PG (27.0-31.0) 28.6 PG (27.0-31.0) Mean Corpuscular Hemoglobin Concent 32.8 G/DL (32.0-36.0) 33.0 G/DL (32.0-36.0) Red Cell Distribution Width 11.5 % (11.6-14.8) L 11.7 % (11.6-14.8) Platelet Count 218 K/UL (150-450) 184 K/UL (150-450) Mean Platelet Volume 8.5 FL (6.5-10.1) 8.9 FL (6.5-10.1) Neutrophils (%) (Auto) 41.9 % (45.0-75.0) L 45.6 % (45.0-75.0) Lymphocytes (%) (Auto) 42.3 % (20.0-45.0) 40.1 % (20.0-45.0) Monocytes (%) (Auto) 11.1 % (1.0-10.0) H 9.3 % (1.0-10.0) Eosinophils (%) (Auto) 3.5 % (0.0-3.0) H 3.5 % (0.0-3.0) H Basophils (%) (Auto) 1.3 % (0.0-2.0) 1.5 % (0.0-2.0) Sodium Level 143 MMOL/L (136-145) 144 MMOL/L (136-145) Potassium Level 3.7 MMOL/L (3.5-5.1) 3.6 MMOL/L (3.5-5.1) Chloride Level 108 MMOL/L (98-107) H 109 MMOL/L (98-107) H Carbon Dioxide Level 25 MMOL/L (21-32) 27 MMOL/L (21-32) Anion Gap 10 mmol/L (5-15) 8 mmol/L (5-15) Blood Urea Nitrogen 9 mg/dL (7-18) 8 mg/dL (7-18) Creatinine 0.7 MG/DL (0.55-1.30) 0.6 MG/DL (0.55-1.30) Estimat Glomerular Filtration Rate > 60 mL/min (>60) > 60 mL/min (>60) Glucose Level 97 MG/DL (74-106) 90 MG/DL (74-106) Calcium Level 9.0 MG/DL (8.5-10.1) 8.3 MG/DL (8.5-10.1) L Total Bilirubin 0.9 MG/DL (0.2-1.0) 1.1 MG/DL (0.2-1.0) H Aspartate Amino Transf (AST/SGOT) 77 U/L (15-37) H 59 U/L (15-37) H Alanine Aminotransferase (ALT/SGPT) 408 U/L (12-78) H 319 U/L (12-78) H Alkaline Phosphatase 131 U/L (46-116) H 108 U/L (46-116) Troponin I 0.000 ng/mL (0.000-0.056) Total Protein 7.5 G/DL (6.4-8.2) 6.6 G/DL (6.4-8.2) Albumin 3.7 G/DL (3.4-5.0) 3.2 G/DL (3.4-5.0) L Globulin 3.8 g/dL 3.4 g/dL Albumin/Globulin Ratio 1.0 (1.0-2.7) 0.9 (1.0-2.7) L Lipase 236 U/L (73-393) 164 U/L (73-393) Urine Color Yellow Urine Appearance Clear Urine pH 8 (4.5-8.0) Urine Specific [place] 1.015 (1.005-1.035) Urine Protein Negative (NEGATIVE) Urine Glucose (UA) Negative (NEGATIVE) Urine Ketones Negative (NEGATIVE) Urine Occult Blood Negative (NEGATIVE) Urine Nitrite Negative (NEGATIVE) Urine Bilirubin Negative (NEGATIVE) Urine Urobilinogen 4 MG/DL (0.0-1.0) H Urine Leukocyte Esterase Negative (NEGATIVE) Direct Bilirubin 0.2 MG/DL (0.0-0.3) Amylase Level 31 U/L (25-115) General Appearance: well appearing, no apparent distress, alert Head: normocephalic EENT: PERRL/EOMI, normal ENT inspection Neck: supple Respiratory: normal breath sounds, no respiratory distress Cardiovascular: normal rate Gastrointestinal: normal inspection, non tender, soft, normal bowel sounds, non -distended Rectal: deferred Genitourinary: deferred Musculoskeletal: normal inspection, back normal Neurologic: normal inspection, alert, oriented x3, responsive Psychiatric: normal inspection, judgement/insight normal, memory normal Skin: normal inspection, normal color, no rash, warm/dry, palpation normal, well hydrated Lymphatic: normal inspection, no adenopathy Current Medications Current Medications Medications (Trade) Dose Ordered Sig/Candelario Route PRN Reason Start Time Stop Time Status Last Admin Dose Admin Acetaminophen (Tylenol) 650 mg Q4H PRN ORAL fever 06/08/17 22:45 07/08/17 22:44 Al Hydroxide/Mg Hydroxide (Mylanta II) 30 ml Q6H PRN ORAL dyspepsia 06/08/17 22:45 07/08/17 22:44 Dextrose (Dextrose 50%) STAT PRN IV Hypoglycemia 06/08/17 22:45 07/08/17 22:44 Dextrose/Sodium Chloride 1,000 ml @ 75 mls/hr [id number] IV 06/08/17 22:39 07/08/17 22:38 06/09/17 12:19 Diphenhydramine HCl (Benadryl) 25 mg Q6H PRN ORAL Itching/Pruritis 06/08/17 22:45 07/08/17 22:44 Morphine Sulfate (Morphine Sulfate) 2 mg Q4H PRN IVP severe Pain (Pain Scale 7-10) 06/08/17 22:45 06/15/17 22:44 06/09/17 13:56 Nitroglycerin (Ntg) 0.4 mg Q5M X 3 DOSES PRN SL Prn Chest Pain 06/08/17 22:45 07/08/17 22:44 Ondansetron HCl (Zofran) 4 mg Q6H PRN IVP Nausea & Vomiting 06/08/17 22:45 07/08/17 22:44 Pantoprazole (Protonix) 40 mg DAILY IVP 06/09/17 09:00 07/09/17 08:59 06/09/17 09:50 Polyethylene Glycol (Miralax) 17 gm HSPRN PRN ORAL Constipation 06/08/17 22:45 07/08/17 22:44 Temazepam (Restoril) 15 mg HSPRN PRN ORAL Insomnia 06/08/17 22:45 06/15/17 22:44 GI: Plan Problems: (1) Epigastric abdominal pain (2) Left leg pain (3) Symptomatic cholelithiasis (4) Abdominal pain (5) Transaminitis (6) Alkaline phosphatase elevation Plan CT AP reviewed >> - Cholelithiasis in a mildly distended gallbladder. No definite CT evidence to suggest acute cholecystitis. - possible fatty liver - No bowel obstruction. Appendix is normal. - Thickening versus underdistention of the bladder. fu abdominal U/S >> may consider HIDA CLD, advance as tolerated ppi + H2B qhs pain mgmt fu labs, hepatitis panel Discussed with Dr. Daley. Thank you for this patient referral, we will follow. Josefina Clarke N.P. Jun 09, 2017 15:11
[2017-06-09 15:49] VITALS: BP 124/84
--- NOTE | 2017-06-09 16:45 | Diagnostic Imaging Report ---
Indications: Headache Technique: Spiral acquisitions obtained through the brain. Angled axial and coronal 5 x 5 mm slices were reconstructed. Total dose length product 1424.99 mGycm. CTDI vol(s) 70.38 mGy. Dose reduction achieved using automated exposure control Comparison: None. 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 There is encephalomalacia of the medial parasagittal left parietal and occipital lobes. No acute intracranial hemorrhage or edema, mass effect, or midline shift. Normal shane-white differentiation. There is minimal ethmoid sinus mucosal thickening. The orbits are unremarkable. Impression: Postsurgical changes, as described Left medial occipital and parietal encephalomalacia, suspect related to the above. Correlate with surgical history Negative for acute intracranial bleed or mass effect The CT scanner at [facility] is accredited by the [employer] and the scans are performed using protocols designed to limit radiation exposure to as low as reasonably achievable to attain images of sufficient resolution adequate for diagnostic evaluation.
--- NOTE | 2017-06-09 17:25 | History and Physical ---
History of Present Illness General Date patient seen: Jun 09, 2017 Reason for Hospitalization: Abdominal Pain Present Illness HPI The patient is 47-year-old male with pmhx gastroesophogeal disease and recent diagnosis of gallstones and gall stone disease who presents to [facility] emergency room with complaint of increased abdominal pain around the right upper quandrant region. Patient admits to a onset of symptoms that just started again yesterday. Patient reports that the abdominal pain radiates to his upper right back. Patient had prior history of factor VIII deficiency. Patient states that he had not been having any vomiting or bloody stools. He reports having sharp pain especially after eating a large meal. He denies alcohol use. Patient reports having a recent visit in which he was diagnosed with gallstones. Patient admits that he was ordered recently to follow up with a general surgeon since last visit. Allergies: Coded Allergies: No Known Allergies (Unverified , 07/18/13) Medication History Scheduled No Known Medications* (NKM - No Known Medications*), 0 ., (Reported) Scheduled PRN Hydrocodone/Acetaminophen 5-325* (Hydrocodone/Acetaminophen 5-325*), 1 TAB ORAL Q6H PRN for For Pain Patient History Healthcare decision maker Resuscitation status Full Code Advanced Directive on File Past Medical/Surgical History Past Medical/Surgical History: (1) Gastritis (2) Pyelonephritis (3) Left leg pain (4) Epigastric abdominal pain (5) Transaminitis (6) Alkaline phosphatase elevation Review of Systems Constitutional: Reports: weakness Gastrointestinal: Reports: abdominal pain Physical Exam General Appearance: mild distress Lines, tubes and drains: peripheral HEENT: normocephalic, atraumatic, anicteric, PERRL Neck: non-tender, normal alignment, supple, normal inspection Respiratory/Chest: chest wall non-tender, no respiratory distress Breasts: no masses Cardiovascular/Chest: normal peripheral pulses, normal rate, regular rhythm, no JVD Abdomen: abnormal bowel sounds, distended, guarding, tender Genitourinary/Rectal: normal genital exam, normal rectal exam Extremities: normal range of motion, non-tender, normal inspection, no calf tenderness Skin Exam: normal pigmentation, warm/dry Neurologic: supervising bailiff II-XII grossly normal, no motor/sensory deficits Last 24 Hour Vital Signs Date Time Temp Pulse Resp B/P (MAP) Pulse Ox O2 Delivery O2 Flow Rate FiO2 06/09/17 15:49 97.0 63 20 124/84 96 06/09/17 11:46 97.5 60 20 120/81 96 06/09/17 08:00 96.3 62 20 112/82 98 06/09/17 05:47 97.8 70 18 119/76 97 Room Air 06/09/17 00:00 97.7 76 20 124/83 97 Room Air 06/08/17 23:30 97.9 90 18 130/64 97 Room Air 06/08/17 23:18 97.9 90 18 130/64 97 Room Air 06/08/17 20:23 97.9 96 18 132/57 97 Room Air Intake and Output 06/08/17 06/09/17 19:00 07:00 Intake Total 975 ml Balance 975 ml Intake Oral 0 ml IV Total 975 ml # Voids 1 Laboratory Tests Test 06/08/17 20:32 06/08/17 20:35 06/08/17 21:00 06/09/17 07:10 Prothrombin Time 9.5 SEC (9.30-11.50) Prothromb Time International Ratio 0.9 (0.9-1.1) Activated Partial Thromboplast Time 38 SEC (23-33) H 43 SEC (23-33) H White Blood Count 5.0 K/UL (4.8-10.8) 5.2 K/UL (4.8-10.8) Red Blood Count 5.55 M/UL (4.70-6.10) 5.11 M/UL (4.70-6.10) Hemoglobin 15.7 G/DL (14.2-18.0) 14.6 G/DL (14.2-18.0) Hematocrit 47.9 % (42.0-52.0) 44.3 % (42.0-52.0) Mean Corpuscular Volume 86 FL (80-99) 87 FL (80-99) Mean Corpuscular Hemoglobin 28.3 PG (27.0-31.0) 28.6 PG (27.0-31.0) Mean Corpuscular Hemoglobin Concent 32.8 G/DL (32.0-36.0) 33.0 G/DL (32.0-36.0) Red Cell Distribution Width 11.5 % (11.6-14.8) L 11.7 % (11.6-14.8) Platelet Count 218 K/UL (150-450) 184 K/UL (150-450) Mean Platelet Volume 8.5 FL (6.5-10.1) 8.9 FL (6.5-10.1) Neutrophils (%) (Auto) 41.9 % (45.0-75.0) L 45.6 % (45.0-75.0) Lymphocytes (%) (Auto) 42.3 % (20.0-45.0) 40.1 % (20.0-45.0) Monocytes (%) (Auto) 11.1 % (1.0-10.0) H 9.3 % (1.0-10.0) Eosinophils (%) (Auto) 3.5 % (0.0-3.0) H 3.5 % (0.0-3.0) H Basophils (%) (Auto) 1.3 % (0.0-2.0) 1.5 % (0.0-2.0) Sodium Level 143 MMOL/L (136-145) 144 MMOL/L (136-145) Potassium Level 3.7 MMOL/L (3.5-5.1) 3.6 MMOL/L (3.5-5.1) Chloride Level 108 MMOL/L (98-107) H 109 MMOL/L (98-107) H Carbon Dioxide Level 25 MMOL/L (21-32) 27 MMOL/L (21-32) Anion Gap 10 mmol/L (5-15) 8 mmol/L (5-15) Blood Urea Nitrogen 9 mg/dL (7-18) 8 mg/dL (7-18) Creatinine 0.7 MG/DL (0.55-1.30) 0.6 MG/DL (0.55-1.30) Estimat Glomerular Filtration Rate > 60 mL/min (>60) > 60 mL/min (>60) Glucose Level 97 MG/DL (74-106) 90 MG/DL (74-106) Calcium Level 9.0 MG/DL (8.5-10.1) 8.3 MG/DL (8.5-10.1) L Total Bilirubin 0.9 MG/DL (0.2-1.0) 1.1 MG/DL (0.2-1.0) H Aspartate Amino Transf (AST/SGOT) 77 U/L (15-37) H 59 U/L (15-37) H Alanine Aminotransferase (ALT/SGPT) 408 U/L (12-78) H 319 U/L (12-78) H Alkaline Phosphatase 131 U/L (46-116) H 108 U/L (46-116) Troponin I 0.000 ng/mL (0.000-0.056) Total Protein 7.5 G/DL (6.4-8.2) 6.6 G/DL (6.4-8.2) Albumin 3.7 G/DL (3.4-5.0) 3.2 G/DL (3.4-5.0) L Globulin 3.8 g/dL 3.4 g/dL Albumin/Globulin Ratio 1.0 (1.0-2.7) 0.9 (1.0-2.7) L Lipase 236 U/L (73-393) 164 U/L (73-393) Urine Color Yellow Urine Appearance Clear Urine pH 8 (4.5-8.0) Urine Specific Stollings 1.015 (1.005-1.035) Urine Protein Negative (NEGATIVE) Urine Glucose (UA) Negative (NEGATIVE) Urine Ketones Negative (NEGATIVE) Urine Occult Blood Negative (NEGATIVE) Urine Nitrite Negative (NEGATIVE) Urine Bilirubin Negative (NEGATIVE) Urine Urobilinogen 4 MG/DL (0.0-1.0) H Urine Leukocyte Esterase Negative (NEGATIVE) Direct Bilirubin 0.2 MG/DL (0.0-0.3) Amylase Level 31 U/L (25-115) Height (Feet): 5 Height (Inches): 7.00 Weight (Pounds): 170 Medications Current Medications Medications (Trade) Dose Ordered Sig/Candelario Route PRN Reason Start Time Stop Time Status Last Admin Dose Admin Acetaminophen (Tylenol) 650 mg Q4H PRN ORAL Mild Pain/Temp > 100.5 06/09/17 16:00 07/09/17 15:59 Al Hydroxide/Mg Hydroxide (Mylanta II) 30 ml Q6H PRN ORAL dyspepsia 06/08/17 22:45 07/08/17 22:44 Dextrose (Dextrose 50%) STAT PRN IV Hypoglycemia 06/08/17 22:45 07/08/17 22:44 Dextrose/Sodium Chloride 1,000 ml @ 75 mls/hr [id number] IV 06/08/17 22:39 07/08/17 22:38 06/09/17 12:19 Diphenhydramine HCl (Benadryl) 25 mg Q6H PRN ORAL Itching/Pruritis 06/08/17 22:45 07/08/17 22:44 Morphine Sulfate (Morphine Sulfate) 2 mg Q4H PRN IVP severe Pain (Pain Scale 7-10) 06/08/17 22:45 06/15/17 22:44 06/09/17 13:56 Nitroglycerin (Ntg) 0.4 mg Q5M X 3 DOSES PRN SL Prn Chest Pain 06/08/17 22:45 07/08/17 22:44 Non-Formulary Medication (Non-Formulary Med) 1 ea DAILY ORAL 06/10/17 09:00 07/10/17 08:59 UNV Ondansetron HCl (Zofran) 4 mg Q6H PRN IVP Nausea & Vomiting 06/08/17 22:45 07/08/17 22:44 06/09/17 17:01 Pantoprazole (Protonix) 40 mg DAILY IVP 06/09/17 09:00 07/09/17 08:59 06/09/17 09:50 Polyethylene Glycol (Miralax) 17 gm HSPRN PRN ORAL Constipation 06/08/17 22:45 07/08/17 22:44 Temazepam (Restoril) 15 mg HSPRN PRN ORAL Insomnia 06/08/17 22:45 06/15/17 22:44 Assessment/Plan Status: stable, progressing Assessment/Plan (1) Epigastric abdominal pain (2) Gastritis (3) Factor VIII deficiency hemophilia Assessment/Plan No need for surgery advance diet f/u by gi might go home in [place] Jun 09, 2017 17:25
[2017-06-09 20:00] VITALS: BP 116/73
[2017-06-09] MEDS ORDERED: ANTIHEMOPHILIC FACTOR RECOMBINANT IV SCH (23:00)
[2017-06-09] MEDS ORDERED: ANTIHEMOPHILIC FACTOR IV SCH (23:00)
[2017-06-10] VITALS: BP 120/77
[2017-06-10 04:00] VITALS: BP 121/75
[2017-06-10] MEDS: D5 1/2NS 1,000 ML IV SCH ×2 (05:12→13:07)
[2017-06-10 07:22] LABS: BASOPHILS % (AUTO) 1.2 % (0.0-2.0); EOSINOPHILS % (AUTO) 2.3 % (0.0-3.0); HEMATOCRIT 47.3 % (42.0-52.0); HEMOGLOBIN 15.5 G/DL (14.2-18.0); LYMPHOCYTES % (AUTO) 30.8 % (20.0-45.0); MEAN CORPUSCULAR VOLUME 86 FL (80-99); MONOCYTES % (AUTO) 8.7 % (1.0-10.0); NEUTROPHILS % (AUTO) 57.1 % (45.0-75.0); PLATELET COUNT 212 K/UL (150-450); RED BLOOD COUNT 5.47 M/UL (4.70-6.10); RED CELL DISTRIBUTION WIDTH 11.5 % (11.6-14.8); WHITE BLOOD COUNT 5.7 K/UL (4.8-10.8)
[2017-06-10 07:39] LABS: ALANINE AMINOTRANSFERASE 268 U/L (12-78); ALBUMIN 3.3 G/DL (3.4-5.0); ALBUMIN/GLOBULIN RATIO 0.9 (1.0-2.7); ALKALINE PHOSPHATASE 111 U/L (46-116); ANION GAP 8 mmol/L (5-15); ASPARTATE AMINO TRANSFERASE 47 U/L (15-37); BILIRUBIN,TOTAL 1.5 MG/DL (0.2-1.0); BLOOD UREA NITROGEN 4 mg/dL (7-18); CALCIUM 8.8 MG/DL (8.5-10.1); CARBON DIOXIDE 27 MMOL/L (21-32); CHLORIDE 107 MMOL/L (98-107); CREATININE 0.7 MG/DL (0.55-1.30); POTASSIUM 3.7 MMOL/L (3.5-5.1); SODIUM 141 MMOL/L (136-145)
[2017-06-10 07:42] LABS: BILIRUBIN,DIRECT 0.3 MG/DL (0.0-0.3)
[2017-06-10 08:00] VITALS: BP 122/82
[2017-06-10] MEDS ORDERED: Morphine Sulfate 2mg/ml Inj IVP ONE (09:00)
--- NOTE | 2017-06-10 09:13 | General Surgery Progress Note ---
General Surgery-Progress Note Subjective Additional Comments no acute events. t bili up, lft's improved. ultrasound with pericholecystic fluid Objective Last 24 Hour Vital Signs Date Time Temp Pulse Resp B/P (MAP) Pulse Ox O2 Delivery O2 Flow Rate FiO2 06/10/17 08:00 97.9 64 20 122/82 96 06/10/17 04:00 97.5 62 20 121/75 99 06/10/17 00:00 98.1 59 20 120/77 98 06/09/17 20:00 98.1 72 20 116/73 98 06/09/17 15:49 97.0 63 20 124/84 96 06/09/17 11:46 97.5 60 20 120/81 96 I&O Intake and Output 06/09/17 06/10/17 19:00 07:00 Intake Total 795 ml 825 ml Output Total 1050 ml 1500 ml Balance -255 ml -675 ml Intake Oral 120 ml IV Total 675 ml 825 ml Output Urine Total 1050 ml 1500 ml Cardiovascular: RSR Respiratory: clear Abdomen: soft, flat, non-tender, tenderness, present bowel sounds Extremities: no tenderness, no cyanosis Laboratory Tests Test 06/10/17 05:00 White Blood Count 5.7 K/UL (4.8-10.8) Red Blood Count 5.47 M/UL (4.70-6.10) Hemoglobin 15.5 G/DL (14.2-18.0) Hematocrit 47.3 % (42.0-52.0) Mean Corpuscular Volume 86 FL (80-99) Mean Corpuscular Hemoglobin 28.4 PG (27.0-31.0) Mean Corpuscular Hemoglobin Concent 32.9 G/DL (32.0-36.0) Red Cell Distribution Width 11.5 % (11.6-14.8) L Platelet Count 212 K/UL (150-450) Mean Platelet Volume 8.0 FL (6.5-10.1) Neutrophils (%) (Auto) 57.1 % (45.0-75.0) Lymphocytes (%) (Auto) 30.8 % (20.0-45.0) Monocytes (%) (Auto) 8.7 % (1.0-10.0) Eosinophils (%) (Auto) 2.3 % (0.0-3.0) Basophils (%) (Auto) 1.2 % (0.0-2.0) Sodium Level 141 MMOL/L (136-145) Potassium Level 3.7 MMOL/L (3.5-5.1) Chloride Level 107 MMOL/L (98-107) Carbon Dioxide Level 27 MMOL/L (21-32) Anion Gap 8 mmol/L (5-15) Blood Urea Nitrogen 4 mg/dL (7-18) L Creatinine 0.7 MG/DL (0.55-1.30) Estimat Glomerular Filtration Rate > 60 mL/min (>60) Glucose Level 104 MG/DL (74-106) Calcium Level 8.8 MG/DL (8.5-10.1) Total Bilirubin 1.5 MG/DL (0.2-1.0) H Direct Bilirubin 0.3 MG/DL (0.0-0.3) Aspartate Amino Transf (AST/SGOT) 47 U/L (15-37) H Alanine Aminotransferase (ALT/SGPT) 268 U/L (12-78) H Alkaline Phosphatase 111 U/L (46-116) Total Protein 6.9 G/DL (6.4-8.2) Albumin 3.3 G/DL (3.4-5.0) L Globulin 3.6 g/dL Albumin/Globulin Ratio 0.9 (1.0-2.7) L Hepatitis A IgM Antibody Pending Hepatitis A Antibody Total Pending Hepatitis B Surface Antigen Pending Hepatitis B Surface Antibody Pending Hepatitis B Core Total Antibody Pending Hepatitis B Core IgM Antibody Pending Hepatitis C Antibody Pending HIV (1&2) Antibody Rapid Negative (NEGATIVE) Plan Problems: (1) Symptomatic cholelithiasis (2) Abdominal pain Assessment & Plan: 47M with abdominal pain. CT scan demonstrated gallstones. ultrasound with pericholecystic fluid. labs with elevated lft's but normal wbc. t bili up but lft's trending down afebrile, HD stable, exam benign. -HIDA scan -trend labs will follow with recs as results available. thank you for this consultation. Cesar Kim Jun 10, 2017 09:13
--- NOTE | 2017-06-10 10:57 | GI Progress Note ---
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 Daley. Assessment/Plan CT AP reviewed >> - Cholelithiasis in a mildly distended gallbladder. No definite CT evidence to suggest acute cholecystitis. - possible fatty liver - No bowel obstruction. Appendix is normal. - Thickening versus underdistention of the bladder. abdominal U/S reviewed >> HIDA today CLD, advance as tolerated ppi + H2B qhs pain mgmt fu labs, hepatitis panel Subjective Subjective abdominal pain Objective Last 24 Hour Vital Signs Date Time Temp Pulse Resp B/P (MAP) Pulse Ox O2 Delivery O2 Flow Rate FiO2 06/10/17 08:00 97.9 64 20 122/82 96 06/10/17 04:00 97.5 62 20 121/75 99 06/10/17 00:00 98.1 59 20 120/77 98 06/09/17 20:00 98.1 72 20 116/73 98 06/09/17 15:49 97.0 63 20 124/84 96 06/09/17 11:46 97.5 60 20 120/81 96 Intake and Output 06/09/17 06/10/17 19:00 07:00 Intake Total 795 ml 825 ml Output Total 1050 ml 1500 ml Balance -255 ml -675 ml Intake Oral 120 ml IV Total 675 ml 825 ml Output Urine Total 1050 ml 1500 ml Laboratory Tests Test 06/10/17 05:00 White Blood Count 5.7 K/UL (4.8-10.8) Red Blood Count 5.47 M/UL (4.70-6.10) Hemoglobin 15.5 G/DL (14.2-18.0) Hematocrit 47.3 % (42.0-52.0) Mean Corpuscular Volume 86 FL (80-99) Mean Corpuscular Hemoglobin 28.4 PG (27.0-31.0) Mean Corpuscular Hemoglobin Concent 32.9 G/DL (32.0-36.0) Red Cell Distribution Width 11.5 % (11.6-14.8) L Platelet Count 212 K/UL (150-450) Mean Platelet Volume 8.0 FL (6.5-10.1) Neutrophils (%) (Auto) 57.1 % (45.0-75.0) Lymphocytes (%) (Auto) 30.8 % (20.0-45.0) Monocytes (%) (Auto) 8.7 % (1.0-10.0) Eosinophils (%) (Auto) 2.3 % (0.0-3.0) Basophils (%) (Auto) 1.2 % (0.0-2.0) Sodium Level 141 MMOL/L (136-145) Potassium Level 3.7 MMOL/L (3.5-5.1) Chloride Level 107 MMOL/L (98-107) Carbon Dioxide Level 27 MMOL/L (21-32) Anion Gap 8 mmol/L (5-15) Blood Urea Nitrogen 4 mg/dL (7-18) L Creatinine 0.7 MG/DL (0.55-1.30) Estimat Glomerular Filtration Rate > 60 mL/min (>60) Glucose Level 104 MG/DL (74-106) Calcium Level 8.8 MG/DL (8.5-10.1) Total Bilirubin 1.5 MG/DL (0.2-1.0) H Direct Bilirubin 0.3 MG/DL (0.0-0.3) Aspartate Amino Transf (AST/SGOT) 47 U/L (15-37) H Alanine Aminotransferase (ALT/SGPT) 268 U/L (12-78) H Alkaline Phosphatase 111 U/L (46-116) Total Protein 6.9 G/DL (6.4-8.2) Albumin 3.3 G/DL (3.4-5.0) L Globulin 3.6 g/dL Albumin/Globulin Ratio 0.9 (1.0-2.7) L Hepatitis A IgM Antibody Pending Hepatitis A Antibody Total Pending Hepatitis B Surface Antigen Pending Hepatitis B Surface Antibody Pending Hepatitis B Core Total Antibody Pending Hepatitis B Core IgM Antibody Pending Hepatitis C Antibody Pending HIV (1&2) Antibody Rapid Negative (NEGATIVE) Height (Feet): 5 Height (Inches): 7.00 Weight (Pounds): 170 General Appearance: WD/WN, no apparent distress, alert Cardiovascular: normal rate Respiratory/Chest: normal breath sounds, no respiratory distress Abdominal Exam: normal bowel sounds, non tender, soft Extremities: normal range of motion, non-tender Josefina Qiu N.P. Jun 10, 2017 10:57
[2017-06-10] MEDS: Pantoprazole Inj IVP SCH (11:20)
--- NOTE | 2017-06-10 11:23 | Diagnostic Imaging Report ---
Indications: Abdominal pain, gallstones on prior cross-sectional imaging studies Technique: IV administration 5.5 mCi 99 M technetium Choletec. Serial images obtained over the abdomen for 2 hrs . Patient given IV morphine 2 mg at one hour into the exam Comparison: None Findings: Prompt tracer uptake within the liver. Extrahepatic bile ducts are seen at 10 minutes. Excretion into the duodenum demonstrated at 10 minutes. Gallbladder visualized at 85 minutes, 25 minutes after morphine administration. Trace reflux into the stomach is noted Impression: Negative. No evidence of cystic duct or common bile duct obstruction
[2017-06-10 12:00] VITALS: BP 117/86
--- NOTE | 2017-06-10 12:24 | Infectious Diseases Prog Note ---
Assessment/Plan Assessment/Plan Abx: None Assessment: Epigastric pain- r/o cholecystitis, gastritis, acute viral hepatitis -HIDA scan: Negative. No evidence of cystic duct or common bile duct obstruction -Abd US : Cholelithiasis and gallbladder sludge. The gallbladder is wall is not thickened, but presence of some pericholecystic fluid does raise concern for acute cholecystitis. -CT abd/p 06/06: Limited evaluation without intravenous and oral contrast. Within these limitations:Cholelithiasis in a mildly distended gallbladder. No definite CT evidence to suggest acute cholecystitis. Consider right upper quadrant ultrasound for further evaluation as clinically indicated. Mildly heterogeneous appearance of the liver, with scattered areas of low-attenuation. This raises question for fatty liver. Additional etiologies not excluded. Further evaluation recommended as clinically indicated. 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 Will continue to follow along with you. Discussed with RN. Subjective Allergies: Coded Allergies: No Known Allergies (Unverified , 07/18/13) Subjective afebrile no leukocytosis LFTs better, bili up HIDA scan neg Objective Vital Signs Last 24 Hour Vital Signs Date Time Temp Pulse Resp B/P (MAP) Pulse Ox O2 Delivery O2 Flow Rate FiO2 06/10/17 08:00 97.9 64 20 122/82 96 06/10/17 04:00 97.5 62 20 121/75 99 06/10/17 00:00 98.1 59 20 120/77 98 06/09/17 20:00 98.1 72 20 116/73 98 06/09/17 15:49 97.0 63 20 124/84 96 Height (Feet): 5 Height (Inches): 7.00 Weight (Pounds): 170 Objective General Appearance: normal inspection, well appearing, no apparent distress, alert HEENT: atraumaticnormal ENT inspection, hearing grossly normal, normal voice Neck: normal inspection, full range of motion, supple, no bony tend Respiratory: normal inspection, lungs clear, normal breath sounds, no respiratory distress, no retraction, no wheezing Cardiovascular : regular rate, rhythm, no edema Gastrointestinal: mild TTP epigastric area, no RUQ tenderness, neg Nicole's sign Genitourinary: no CVA tenderness Musculoskeletal: normal inspection, back normal, normal range of motion Neurologic: normal inspection, alert, oriented x3, responsive, soap worker III-XII nml as tested, speech normal Psychiatric: normal inspection, judgement/insight normal, mood/affect normal Skin: other - bruising to extremities Laboratory Tests Test 06/10/17 05:00 White Blood Count 5.7 K/UL (4.8-10.8) Red Blood Count 5.47 M/UL (4.70-6.10) Hemoglobin 15.5 G/DL (14.2-18.0) Hematocrit 47.3 % (42.0-52.0) Mean Corpuscular Volume 86 FL (80-99) Mean Corpuscular Hemoglobin 28.4 PG (27.0-31.0) Mean Corpuscular Hemoglobin Concent 32.9 G/DL (32.0-36.0) Red Cell Distribution Width 11.5 % (11.6-14.8) L Platelet Count 212 K/UL (150-450) Mean Platelet Volume 8.0 FL (6.5-10.1) Neutrophils (%) (Auto) 57.1 % (45.0-75.0) Lymphocytes (%) (Auto) 30.8 % (20.0-45.0) Monocytes (%) (Auto) 8.7 % (1.0-10.0) Eosinophils (%) (Auto) 2.3 % (0.0-3.0) Basophils (%) (Auto) 1.2 % (0.0-2.0) Sodium Level 141 MMOL/L (136-145) Potassium Level 3.7 MMOL/L (3.5-5.1) Chloride Level 107 MMOL/L (98-107) Carbon Dioxide Level 27 MMOL/L (21-32) Anion Gap 8 mmol/L (5-15) Blood Urea Nitrogen 4 mg/dL (7-18) L Creatinine 0.7 MG/DL (0.55-1.30) Estimat Glomerular Filtration Rate > 60 mL/min (>60) Glucose Level 104 MG/DL (74-106) Calcium Level 8.8 MG/DL (8.5-10.1) Total Bilirubin 1.5 MG/DL (0.2-1.0) H Direct Bilirubin 0.3 MG/DL (0.0-0.3) Aspartate Amino Transf (AST/SGOT) 47 U/L (15-37) H Alanine Aminotransferase (ALT/SGPT) 268 U/L (12-78) H Alkaline Phosphatase 111 U/L (46-116) Total Protein 6.9 G/DL (6.4-8.2) Albumin 3.3 G/DL (3.4-5.0) L Globulin 3.6 g/dL Albumin/Globulin Ratio 0.9 (1.0-2.7) L Hepatitis A IgM Antibody Pending Hepatitis A Antibody Total Pending Hepatitis B Surface Antigen Pending Hepatitis B Surface Antibody Pending Hepatitis B Core Total Antibody Pending Hepatitis B Core IgM Antibody Pending Hepatitis C Antibody Pending HIV (1&2) Antibody Rapid Negative (NEGATIVE) Current Medications Medications (Trade) Dose Ordered Sig/Candelario Route PRN Reason Start Time Stop Time Status Last Admin Dose Admin Acetaminophen (Tylenol) 650 mg Q4H PRN ORAL Mild Pain/Temp > 100.5 06/09/17 16:00 07/09/17 15:59 06/09/17 23:05 Al Hydroxide/Mg Hydroxide (Mylanta II) 30 ml Q6H PRN ORAL dyspepsia 06/08/17 22:45 07/08/17 22:44 Dextrose (Dextrose 50%) STAT PRN IV Hypoglycemia 06/08/17 22:45 07/08/17 22:44 Dextrose/Sodium Chloride 1,000 ml @ 75 mls/hr [id number] IV 06/08/17 22:39 07/08/17 22:38 06/10/17 05:12 Diphenhydramine HCl (Benadryl) 25 mg Q6H PRN ORAL Itching/Pruritis 06/08/17 22:45 07/08/17 22:44 Morphine Sulfate (Morphine Sulfate) 2 mg Q4H PRN IVP severe Pain (Pain Scale 7-10) 06/08/17 22:45 06/15/17 22:44 06/09/17 13:56 Nitroglycerin (Ntg) 0.4 mg Q5M X 3 DOSES PRN SL Prn Chest Pain 06/08/17 22:45 07/08/17 22:44 Ondansetron HCl (Zofran) 4 mg Q6H PRN IVP Nausea & Vomiting 06/08/17 22:45 07/08/17 22:44 06/09/17 17:01 Pantoprazole (Protonix) 40 mg DAILY IVP 06/09/17 09:00 07/09/17 08:59 06/10/17 11:20 Patient Own Medication (Patient's Own Med) 1,000 ea 2XWEEKLY@TUES/FRI IV 06/09/17 23:00 07/09/17 22:59 06/09/17 22:37 Patient Own Medication (Patient's Own Med) 2,000 ea 2XWEEKLY@TUES/FRI IV 06/09/17 23:00 07/09/17 22:59 06/09/17 22:40 Polyethylene Glycol (Miralax) 17 gm HSPRN PRN ORAL Constipation 06/08/17 22:45 07/08/17 22:44 Temazepam (Restoril) 15 mg HSPRN PRN ORAL Insomnia 06/08/17 22:45 06/15/17 22:44 Sera Mittal M.D. Jun 10, 2017 12:24
[2017-06-10 16:00] VITALS: BP 127/77
--- NOTE | 2017-06-10 18:17 | Pulmonology Progress Note ---
Assessment/Plan Problems: (1) Epigastric abdominal pain (2) Gastritis (3) Factor VIII deficiency hemophilia Assessment/Plan No need for surgery advance diet f/u by gi might go home in am Subjective ROS Limited/Unobtainable: No Constitutional: Reports: no symptoms HEENT: Repors: no symptoms Allergies: Coded Allergies: No Known Allergies (Unverified , 07/18/13) Objective Last 24 Hour Vital Signs Date Time Temp Pulse Resp B/P (MAP) Pulse Ox O2 Delivery O2 Flow Rate FiO2 06/10/17 16:00 97.3 75 20 127/77 97 06/10/17 12:00 98.2 65 20 117/86 97 06/10/17 08:00 97.9 64 20 122/82 96 06/10/17 04:00 97.5 62 20 121/75 99 06/10/17 00:00 98.1 59 20 120/77 98 06/09/17 20:00 98.1 72 20 116/73 98 Intake and Output 06/09/17 06/10/17 19:00 07:00 Intake Total 795 ml 900 ml Output Total 1050 ml 1500 ml Balance -255 ml -600 ml Intake Oral 120 ml IV Total 675 ml 900 ml Output Urine Total 1050 ml 1500 ml General Appearance: WD/WN HEENT: normocephalic Respiratory/Chest: chest wall non-tender, lungs clear Cardiovascular: normal peripheral pulses Abdomen: normal bowel sounds, no organomegaly Genitourinary: normal external genitalia Extremities: no cyanosis 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 Laboratory Tests 06/10/17 05:00: White Blood Count 5.7, Red Blood Count 5.47, Hemoglobin 15.5, Hematocrit 47.3, Mean Corpuscular Volume 86, Mean Corpuscular Hemoglobin 28.4, Mean Corpuscular Hemoglobin Concent 32.9, Red Cell Distribution Width 11.5L, Platelet Count 212, Mean Platelet Volume 8.0, Neutrophils (%) (Auto) 57.1, Lymphocytes (%) (Auto) 30.8, Monocytes (%) (Auto) 8.7, Eosinophils (%) (Auto) 2.3, Basophils (%) (Auto ) 1.2, Sodium Level 141, Potassium Level 3.7, Chloride Level 107, Carbon Dioxide Level 27, Anion Gap 8, Blood Urea Nitrogen 4L, Creatinine 0.7, Estimat Glomerular Filtration Rate > 60, Glucose Level 104, Calcium Level 8.8, Total Bilirubin 1.5H, Direct Bilirubin 0.3, Aspartate Amino Transf (AST/SGOT) 47H, Alanine Aminotransferase (ALT/SGPT) 268H, Alkaline Phosphatase 111, Total Protein 6.9, Albumin 3.3L, Globulin 3.6, Albumin/Globulin Ratio 0.9L, Hepatitis A IgM Antibody [Pending], Hepatitis A Antibody Total [Pending], Hepatitis B Surface Antigen [Pending], Hepatitis B Surface Antibody [Pending], Hepatitis B Core Total Antibody [Pending], Hepatitis B Core IgM Antibody [Pending], Hepatitis C Antibody [Pending], HIV (1&2) Antibody Rapid Negative Current Medications Medications (Trade) Dose Ordered Sig/Candelario Route PRN Reason Start Time Stop Time Status Last Admin Dose Admin Acetaminophen (Tylenol) 650 mg Q4H PRN ORAL Mild Pain/Temp > 100.5 06/09/17 16:00 07/09/17 15:59 06/09/17 23:05 Al Hydroxide/Mg Hydroxide (Mylanta II) 30 ml Q6H PRN ORAL dyspepsia 06/08/17 22:45 07/08/17 22:44 Dextrose (Dextrose 50%) STAT PRN IV Hypoglycemia 06/08/17 22:45 07/08/17 22:44 Dextrose/Sodium Chloride 1,000 ml @ 75 mls/hr [id number] IV 06/08/17 22:39 07/08/17 22:38 06/10/17 05:12 Diphenhydramine HCl (Benadryl) 25 mg Q6H PRN ORAL Itching/Pruritis 06/08/17 22:45 07/08/17 22:44 Morphine Sulfate (Morphine Sulfate) 2 mg Q4H PRN IVP severe Pain (Pain Scale 7-10) 06/08/17 22:45 06/15/17 22:44 06/09/17 13:56 Nitroglycerin (Ntg) 0.4 mg Q5M X 3 DOSES PRN SL Prn Chest Pain 06/08/17 22:45 07/08/17 22:44 Ondansetron HCl (Zofran) 4 mg Q6H PRN IVP Nausea & Vomiting 06/08/17 22:45 07/08/17 22:44 06/09/17 17:01 Pantoprazole (Protonix) 40 mg DAILY IVP 06/09/17 09:00 07/09/17 08:59 06/10/17 11:20 Patient Own Medication (Patient's Own Med) 1,000 ea 2XWEEKLY@TUES/FRI IV 06/09/17 23:00 07/09/17 22:59 06/09/17 22:37 Patient Own Medication (Patient's Own Med) 2,000 ea 2XWEEKLY@TUES/FRI IV 06/09/17 23:00 07/09/17 22:59 06/09/17 22:40 Polyethylene Glycol (Miralax) 17 gm HSPRN PRN ORAL Constipation 06/08/17 22:45 07/08/17 22:44 Temazepam (Restoril) 15 mg HSPRN PRN ORAL Insomnia 06/08/17 22:45 06/15/17 22:44 CHYNA STARK Jun 10, 2017 18:17
--- NOTE | 2017-06-10 19:08 | Cardiology Report ---
APPROVED REPORT EKG Measurement Heart [id number] HI [id number] Normal sinus rhythm Normal ECG
[2017-06-10 20:00] VITALS: BP 116/81
[2017-06-11] VITALS: BP 124/54
[2017-06-11] MEDS: D5 1/2NS 1,000 ML IV SCH (00:41)
[2017-06-11 04:41] VITALS: BP 106/69
[2017-06-11 08:00] VITALS: BP 127/88
[2017-06-11] MEDS: Pantoprazole Inj IVP SCH (09:00)
--- NOTE | 2017-06-11 10:17 | GI Progress Note ---
Assessment/Plan Problems: (1) Alkaline phosphatase elevation ICD Codes: R74.8 - Abnormal levels of other serum enzymes SNOMED: 356491388 (2) Transaminitis ICD Codes: R74.0 - Nonspecific elevation of levels of transaminase and lactic acid dehydrogenase [LDH] SNOMED: 681958156, 698310737 (3) Epigastric abdominal pain ICD Codes: R10.13 - Epigastric pain SNOMED: 18203081 (4) Abdominal pain ICD Codes: R10.9 - Unspecified abdominal pain SNOMED: 36202675, 833753689 Qualifiers: Qualified Codes: R10.13 - Epigastric pain (5) Factor VIII deficiency hemophilia ICD Codes: D66 - Hereditary factor VIII deficiency SNOMED: 95836121, 577745099 (6) Symptomatic cholelithiasis ICD Codes: K80.20 - Calculus of gallbladder without cholecystitis without obstruction SNOMED: 748477029, 542085910 Status: stable Status Narrative Discussed with Dr. Daley. Assessment/Plan CT AP reviewed >> - Cholelithiasis in a mildly distended gallbladder. No definite CT evidence to suggest acute cholecystitis. - possible fatty liver - No bowel obstruction. Appendix is normal. - Thickening versus underdistention of the bladder. HIDA negative okay for DC per GI standpoint abdominal U/S reviewed >> HIDA today CLD, advance as tolerated ppi + H2B qhs pain mgmt fu labs, hepatitis panel Subjective Subjective abdominal pain resolved Objective Last 24 Hour Vital Signs Date Time Temp Pulse Resp B/P (MAP) Pulse Ox O2 Delivery O2 Flow Rate FiO2 06/11/17 08:00 97.9 81 20 127/88 97 06/11/17 04:41 97.7 66 18 106/69 97 06/11/17 00:00 98.2 81 20 124/54 97 06/10/17 20:00 98.1 67 20 116/81 95 06/10/17 16:00 97.3 75 20 127/77 97 06/10/17 12:00 98.2 65 20 117/86 97 Intake and Output 06/10/17 06/11/17 19:00 07:00 Intake Total 1025 ml 765 ml Balance 1025 ml 765 ml Intake Oral 200 ml 240 ml IV Total 825 ml 525 ml # Voids 1 2 Height (Feet): 5 Height (Inches): 7.00 Weight (Pounds): 170 General Appearance: WD/WN, no apparent distress, alert Cardiovascular: normal rate Respiratory/Chest: normal breath sounds, no respiratory distress Abdominal Exam: normal bowel sounds, non tender, soft Extremities: normal range of motion, non-tender Josefina Qiu N.P. Jun 11, 2017 10:17
--- NOTE | 2017-06-11 10:28 | General Surgery Progress Note ---
General Surgery-Progress Note Subjective Symptoms: improved, pain absent, tolerating diet, voiding well, passing flatus , BM Objective Last 24 Hour Vital Signs Date Time Temp Pulse Resp B/P (MAP) Pulse Ox O2 Delivery O2 Flow Rate FiO2 06/11/17 08:00 97.9 81 20 127/88 97 06/11/17 04:41 97.7 66 18 106/69 97 06/11/17 00:00 98.2 81 20 124/54 97 06/10/17 20:00 98.1 67 20 116/81 95 06/10/17 16:00 97.3 75 20 127/77 97 06/10/17 12:00 98.2 65 20 117/86 97 I&O Intake and Output 06/10/17 06/11/17 19:00 07:00 Intake Total 1025 ml 765 ml Balance 1025 ml 765 ml Intake Oral 200 ml 240 ml IV Total 825 ml 525 ml # Voids 1 2 Cardiovascular: RSR Respiratory: clear Abdomen: soft, flat, non-tender, present bowel sounds Extremities: no edema, no tenderness Plan Problems: (1) Symptomatic cholelithiasis (2) Abdominal pain Assessment & Plan: 47M with abdominal pain. CT scan demonstrated gallstones. ultrasound with pericholecystic fluid. HIDA okay. labs improved afebrile, HD stable, exam benign. -diet as tolerated -okay to d/c from surgical standpoint -can follow up with office as outpatient for elective cholecystectomy if desired. Cesar Kim Jun 11, 2017 10:28
[2017-06-11 12:00] VITALS: BP 120/89
--- NOTE | 2017-06-11 12:33 | Infectious Diseases Prog Note ---
Assessment/Plan Assessment/Plan Abx: None Assessment: Epigastric pain- r/o cholecystitis, gastritis, acute viral hepatitis -HIDA scan: Negative. No evidence of cystic duct or common bile duct obstruction -Abd US : Cholelithiasis and gallbladder sludge. The gallbladder is wall is not thickened, but presence of some pericholecystic fluid does raise concern for acute cholecystitis. -CT abd/p 06/06: Limited evaluation without intravenous and oral contrast. Within these limitations:Cholelithiasis in a mildly distended gallbladder. No definite CT evidence to suggest acute cholecystitis. Consider right upper quadrant ultrasound for further evaluation as clinically indicated. Mildly heterogeneous appearance of the liver, with scattered areas of low-attenuation. This raises question for fatty liver. Additional etiologies not excluded. Further evaluation recommended as clinically indicated. 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 Will continue to follow along with you. Discussed with RN. Subjective Allergies: Coded Allergies: No Known Allergies (Unverified , 07/18/13) Subjective afebrile no leukocytosis LFTs improving Hep C ab+ Objective Vital Signs Last 24 Hour Vital Signs Date Time Temp Pulse Resp B/P (MAP) Pulse Ox O2 Delivery O2 Flow Rate FiO2 06/11/17 08:00 97.9 81 20 127/88 97 06/11/17 04:41 97.7 66 18 106/69 97 06/11/17 00:00 98.2 81 20 124/54 97 06/10/17 20:00 98.1 67 20 116/81 95 06/10/17 16:00 97.3 75 20 127/77 97 Height (Feet): 5 Height (Inches): 7.00 Weight (Pounds): 170 Objective General Appearance: normal inspection, well appearing, no apparent distress, alert HEENT: atraumaticnormal ENT inspection, hearing grossly normal, normal voice Neck: normal inspection, full range of motion, supple, no bony tend Respiratory: normal inspection, lungs clear, normal breath sounds, no respiratory distress, no retraction, no wheezing Cardiovascular : regular rate, rhythm, no edema Gastrointestinal: mild TTP epigastric area, no RUQ tenderness, neg Nicole's sign Genitourinary: no CVA tenderness Musculoskeletal: normal inspection, back normal, normal range of motion Neurologic: normal inspection, alert, oriented x3, responsive, 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, speech normal Psychiatric: normal inspection, judgement/insight normal, mood/affect normal Skin: other - bruising to extremities Current Medications Medications (Trade) Dose Ordered Sig/Candelario Route PRN Reason Start Time Stop Time Status Last Admin Dose Admin Acetaminophen (Tylenol) 650 mg Q4H PRN ORAL Mild Pain/Temp > 100.5 06/09/17 16:00 07/09/17 15:59 06/09/17 23:05 Al Hydroxide/Mg Hydroxide (Mylanta II) 30 ml Q6H PRN ORAL dyspepsia 06/08/17 22:45 07/08/17 22:44 Dextrose (Dextrose 50%) STAT PRN IV Hypoglycemia 06/08/17 22:45 07/08/17 22:44 Diphenhydramine HCl (Benadryl) 25 mg Q6H PRN ORAL Itching/Pruritis 06/08/17 22:45 07/08/17 22:44 Morphine Sulfate (Morphine Sulfate) 2 mg Q4H PRN IVP severe Pain (Pain Scale 7-10) 06/08/17 22:45 06/15/17 22:44 06/09/17 13:56 Nitroglycerin (Ntg) 0.4 mg Q5M X 3 DOSES PRN SL Prn Chest Pain 06/08/17 22:45 07/08/17 22:44 Ondansetron HCl (Zofran) 4 mg Q6H PRN IVP Nausea & Vomiting 06/08/17 22:45 07/08/17 22:44 06/09/17 17:01 Pantoprazole (Protonix) 40 mg DAILY IVP 06/09/17 09:00 07/09/17 08:59 06/10/17 11:20 Patient Own Medication (Patient's Own Med) 1,000 ea 2XWEEKLY@TUES/FRI IV 06/09/17 23:00 07/09/17 22:59 06/09/17 22:37 Patient Own Medication (Patient's Own Med) 2,000 ea 2XWEEKLY@TUES/FRI IV 06/09/17 23:00 07/09/17 22:59 06/09/17 22:40 Polyethylene Glycol (Miralax) 17 gm HSPRN PRN ORAL Constipation 06/08/17 22:45 07/08/17 22:44 Temazepam (Restoril) 15 mg HSPRN PRN ORAL Insomnia 06/08/17 22:45 06/15/17 22:44 Sera Mittal M.D. Jun 11, 2017 12:33
[2017-06-11 12:56] LABS: BASOPHILS % (AUTO) 1.1 % (0.0-2.0); EOSINOPHILS % (AUTO) 2.2 % (0.0-3.0); HEMATOCRIT 51.6 % (42.0-52.0); HEMOGLOBIN 17.1 G/DL (14.2-18.0); LYMPHOCYTES % (AUTO) 25.5 % (20.0-45.0); MEAN CORPUSCULAR VOLUME 86 FL (80-99); MONOCYTES % (AUTO) 8.6 % (1.0-10.0); NEUTROPHILS % (AUTO) 62.6 % (45.0-75.0); PLATELET COUNT 234 K/UL (150-450); RED BLOOD COUNT 5.99 M/UL (4.70-6.10); RED CELL DISTRIBUTION WIDTH 11.3 % (11.6-14.8); WHITE BLOOD COUNT 6.5 K/UL (4.8-10.8)
[2017-06-11 13:12] LABS: ALANINE AMINOTRANSFERASE 236 U/L (12-78); ALBUMIN 3.9 G/DL (3.4-5.0); ALBUMIN/GLOBULIN RATIO 0.9 (1.0-2.7); ALKALINE PHOSPHATASE 120 U/L (46-116); ANION GAP 12 mmol/L (5-15); ASPARTATE AMINO TRANSFERASE 36 U/L (15-37); BILIRUBIN,TOTAL 0.9 MG/DL (0.2-1.0); BLOOD UREA NITROGEN 6 mg/dL (7-18); CALCIUM 9.2 MG/DL (8.5-10.1); CARBON DIOXIDE 25 MMOL/L (21-32); CHLORIDE 105 MMOL/L (98-107); CREATININE 0.7 MG/DL (0.55-1.30); POTASSIUM 3.9 MMOL/L (3.5-5.1); SODIUM 142 MMOL/L (136-145)
[2017-06-11] MEDS ORDERED: D5 1/2NS 1000ml IV ONE (13:59)
--- NOTE | 2017-06-11 19:11 | Pulmonology Progress Note ---
Assessment/Plan Problems: (1) Epigastric abdominal pain (2) Gastritis (3) Factor VIII deficiency hemophilia Assessment/Plan No need for surgery advance diet f/u by gi f/u by primary symptomatic treatment. Subjective ROS Limited/Unobtainable: No Constitutional: Reports: no symptoms HEENT: Repors: no symptoms Respiratory: Reports: no symptoms Allergies: Coded Allergies: No Known Allergies (Unverified , 07/18/13) Objective Last 24 Hour Vital Signs Date Time Temp Pulse Resp B/P (MAP) Pulse Ox O2 Delivery O2 Flow Rate FiO2 06/11/17 12:00 97.7 76 20 120/89 98 06/11/17 08:00 97.9 81 20 127/88 97 06/11/17 04:41 97.7 66 18 106/69 97 06/11/17 00:00 98.2 81 20 124/54 97 06/10/17 20:00 98.1 67 20 116/81 95 Intake and Output 06/10/17 06/11/17 19:00 07:00 Intake Total 1025 ml 765 ml Balance 1025 ml 765 ml Intake Oral 200 ml 240 ml IV Total 825 ml 525 ml # Voids 1 2 General Appearance: WD/WN HEENT: normocephalic, atraumatic Respiratory/Chest: chest wall non-tender, lungs clear Cardiovascular: normal peripheral pulses, regular rhythm Abdomen: normal bowel sounds, soft, non tender, no scars Laboratory Tests 06/11/17 12:20: White Blood Count 6.5, Red Blood Count 5.99, Hemoglobin 17.1, Hematocrit 51.6, Mean Corpuscular Volume 86, Mean Corpuscular Hemoglobin 28.5, Mean Corpuscular Hemoglobin Concent 33.1, Red Cell Distribution Width 11.3L, Platelet Count 234, Mean Platelet Volume 9.1, Neutrophils (%) (Auto) 62.6, Lymphocytes (%) (Auto) 25.5, Monocytes (%) (Auto) 8.6, Eosinophils (%) (Auto) 2.2, Basophils (%) (Auto ) 1.1, Sodium Level 142, Potassium Level 3.9, Chloride Level 105, Carbon Dioxide Level 25, Anion Gap 12, Blood Urea Nitrogen 6L, Creatinine 0.7, Estimat Glomerular Filtration Rate > 60, Glucose Level 93, Calcium Level 9.2, Total Bilirubin 0.9, Aspartate Amino Transf (AST/SGOT) 36, Alanine Aminotransferase ( ALT/SGPT) 236H, Alkaline Phosphatase 120H, Total Protein 8.2, Albumin 3.9, Globulin 4.3, Albumin/Globulin Ratio 0.9L CHYNA STARK Jun 11, 2017 19:11
--- NOTE | 2017-06-11 23:59 | General Progress Note ---
Assessment/Plan Assessment/Plan 1. 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 --> I have discussed with the nurse. --> No evidence of bleed. --> Monitor closely. 2. 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 --> Continue to monitor at this time. 3. Transaminitis, potentially related to the underlying abdominal pain, has been seen by GI Service with transaminitis and elevated alkaline phosphatase. --> Workup as per GI team. --> CAT scan reviewed shows cholelithiasis. --> HIDA scan negative, no evidence of cystic duct or common bile obstruction 4. Continue to further follow up. Subjective Date patient seen: Jun 10, 2017 Constitutional: Denies: no symptoms, chills, diaphoresis, fever, malaise, weakness, other HEENT: Denies: no symptoms, eye pain, blurred vision, tearing, double vision, ear pain, ear discharge, nose pain, nose congestion, throat pain, throat swelling, mouth pain, mouth swelling, other Cardiovascular: Denies: no symptoms, chest pain, edema, irregular heart rate, lightheadedness, palpitations, syncope, other Respiratory: Denies: no symptoms, cough, orthopnea, shortness of breath, SOB with excertion, SOB at rest, sputum, stridor, wheezing, other Gastrointestinal/Abdominal: Denies: no symptoms, abdomen distended, abdominal pain, black stools, tarry stools, blood in stool, constipated, diarrhea, difficulty swallowing, nausea, poor appetite, poor fluid intake, rectal bleeding , vomiting, other Genitourinary: Denies: no symptoms, burning, discharge, frequency, flank pain, hematuria, incontinence, pain, urgency, other Neurologic/Psychiatric: Denies: no symptoms, anxiety, depressed, emotional problems, headache, numbness, paresthesia, pre-existing deficit, seizure, tingling, tremors, weakness, other Allergies: Coded Allergies: No Known Allergies (Unverified , 07/18/13) Subjective No acute distress. at bedside. Objective Last 24 Hour Vital Signs Date Time Temp Pulse Resp B/P (MAP) Pulse Ox O2 Delivery O2 Flow Rate FiO2 06/11/17 12:00 97.7 76 20 120/89 98 06/11/17 08:00 97.9 81 20 127/88 97 06/11/17 04:41 97.7 66 18 106/69 97 06/11/17 00:00 98.2 81 20 124/54 97 Intake and Output 06/10/17 06/11/17 19:00 07:00 Intake Total 1025 ml 765 ml Balance 1025 ml 765 ml Intake Oral 200 ml 240 ml IV Total 825 ml 525 ml # Voids 1 2 Laboratory Tests 06/11/17 12:20: White Blood Count 6.5, Red Blood Count 5.99, Hemoglobin 17.1, Hematocrit 51.6, Mean Corpuscular Volume 86, Mean Corpuscular Hemoglobin 28.5, Mean Corpuscular Hemoglobin Concent 33.1, Red Cell Distribution Width 11.3L, Platelet Count 234, Mean Platelet Volume 9.1, Neutrophils (%) (Auto) 62.6, Lymphocytes (%) (Auto) 25.5, Monocytes (%) (Auto) 8.6, Eosinophils (%) (Auto) 2.2, Basophils (%) (Auto ) 1.1, Sodium Level 142, Potassium Level 3.9, Chloride Level 105, Carbon Dioxide Level 25, Anion Gap 12, Blood Urea Nitrogen 6L, Creatinine 0.7, Estimat Glomerular Filtration Rate > 60, Glucose Level 93, Calcium Level 9.2, Total Bilirubin 0.9, Aspartate Amino Transf (AST/SGOT) 36, Alanine Aminotransferase ( ALT/SGPT) 236H, Alkaline Phosphatase 120H, Total Protein 8.2, Albumin 3.9, Globulin 4.3, Albumin/Globulin Ratio 0.9L Height (Feet): 5 Height (Inches): 7.00 Weight (Pounds): 170 Zaki Jesus Jun 11, 2017 23:59
--- NOTE | 2017-06-12 12:05 | Discharge Summary ---
Discharge Summary Hospital Course Date of Admission Jun 08, 2017 at 22:17 Date of Discharge Jun 11, 2017 at 14:00 Admitting Diagnosis abdominal pain, symptomatic cholelithiasis TALI Mackey is a 47 year old male who was admitted on Jun 08, 2017 at 22:17 for Abdominal Pain/Symptomatic Cholelithiasis Hospital Course [id number] Discharge Discharge Disposition Patient was discharged to Home (01) Discharge Diagnoses: Haylie Ford NP Jun 12, 2017 12:05
--- NOTE | 2017-06-12 12:55 | Consultation ---
DATE OF CONSULTATION: 06/09/2017 NOTE: POOR AUDIO HEMATOLOGY/ONCOLOGY CONSULTATION CONSULTING PHYSICIAN: Zaki Jesus M.D. REQUESTING PHYSICIAN: Jaun Khan M.D. REASON FOR CONSULTATION: Evaluation of hemophilia. IDENTIFICATION DATA: Dear Dr. Khan, The patient is a pleasant 47-year-old male, otherwise has been doing well, history of hemophilia. At this time, presents with upper epigastric pain developed in the [place] this prior weekend. The patient did acupuncture massage, has improved with the pain. However, currently continues to have this issue. A CAT scan has been completed. He has seen Surgical Service with no acute abnormality found. He was discharged home, however, presents again with worsening pain. Hematology Service was consulted given history of hemophilia for evaluation and treatment. He has a factor VIII deficiency, factor has been restarted. PAST MEDICAL HISTORY: As noted above. MEDICATIONS: Reviewed. He is not taking any for several days. ALLERGIES: No known drug allergies. REVIEW OF SYSTEMS: A 12-point review of systems is completed and is otherwise negative. PHYSICAL EXAMINATION: GENERAL: No acute distress. VITAL SIGNS: Reviewed. PULMONARY: Decreased breath sounds. CARDIOVASCULAR: Regular rate. No S3 or S4. ABDOMEN: Soft, nontender, and nondistended. EXTREMITIES: No cyanosis, swelling, or edema. LABORATORY AND DIAGNOSTIC DATA: Labs reviewed. WBC of with a hemoglobin 14.6, hematocrit 44, and platelet count of 184,000. INR of and PTT of 43. BUN 9 and creatinine 0.6. ASSESSMENT AND RECOMMENDATIONS: 1. 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 The patient has been placed. I have discussed with the nurse. No evidence of bleed. 2. 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 Continue to monitor at this time. 3. Transaminitis, potentially related to the underlying abdominal pain, has been seen by GI Service with transaminitis and elevated alkaline phosphatase. Workup as per GI team. CAT scan reviewed shows cholelithiasis. Considering HIDA scan 4. . 5. Continue to further follow up. I appreciate the consultation. Zaki Jesus M.D. DR: EMERY JOB#: [id number] CC:
--- NOTE | 2017-06-13 04:00 | Discharge Summary 2 SIG ---
DATE OF ADMISSION: 06/08/2017 DATE OF DISCHARGE: 06/11/2017 CONSULTANTS: 1. Sera Mittal M.D. 2. Cesar Kim M.D. 3. Chris Daley M.D. BRIEF HOSPITAL COURSE: The patient is a 47-year-old male, who presented to ED for complaints of increased abdominal pain with gradual onset of symptoms. Pain was described to be sharp and located in the epigastric area that radiates to the back. He has a past medical history significant for CVA with left-sided hemiparesis, history of factor VIII deficiency, and a prior diagnosis of gallstones. On evaluation at ED, WBC was 5 and hemoglobin and hematocrit were stable. EKG showed normal sinus rhythm with nonspecific ST changes. Abdominal ultrasound done showed cholelithiasis with gallbladder sludge. There was presence of pericholecystic fluid, although gallbladder wall is not thickened. Alkaline phosphatase was elevated to 131, ALT was 408, and AST was 77. Total bilirubin was normal. He was admitted for symptomatic cholelithiasis and abdominal pain. He was started on proton pump inhibitors and H2 blockers. He had a CT of the abdomen and pelvis done that showed cholelithiasis with mildly distended gallbladder, no definite CT evidence to suggest acute cholecystitis. There was no bowel obstruction. Appendix is normal. Surgical evaluation was done. HIDA scan was negative. There was no evidence of cystic duct or common bile duct obstruction. Diet was advanced. There was no urgent surgical intervention needed and the patient can follow up as outpatient for elective cholecystectomy if desired. He had elevated LFTs. Hepatitis C antibody was positive. The patient will need to follow up as outpatient for viral load and genotype. Diet was advanced. He was tolerating diet and was passing flatus and had bowel movement. He was discharged home. FINAL DIAGNOSES: 1. Epigastric abdominal pain. 2. Gastritis. 3. Factor VIII deficiency. 4. Elevated liver transaminases. 5. Positive hepatitis C antibody. 6. Indirect hyperbilirubinemia. 7. Gastroesophageal reflux disease. 8. Cholelithiasis. 9. Cerebrovascular accident with left-sided weakness. DISPOSITION: The patient was discharged home. DISCHARGE INSTRUCTIONS: Follow up with PMD for a possible referral for an elective cholecystectomy. Jaun Khan M.D. I have been assigned to dictate discharge summary on this account and I was not involved in the patient's management. Haylie Ford N.P. DR: RAVEN JOB#: [id number] CC: SANJANA
--- NOTE | 2017-06-13 23:02 | General Progress Note ---
Assessment/Plan Status: unchanged Assessment/Plan 1. 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 --> I have discussed with the nurse. --> No evidence of bleed. 2. 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 --> Continue to monitor at this time. 3. Transaminitis, potentially related to the underlying abdominal pain, has been seen by GI Service with transaminitis and elevated alkaline phosphatase. --> Workup as per GI team. --> CAT scan reviewed shows cholelithiasis. --> HIDA scan negative, no evidence of cystic duct or common bile obstruction 4. Continue to further follow up. Subjective Date patient seen: Jun 11, 2017 Constitutional: Denies: no symptoms, chills, diaphoresis, fever, malaise, weakness, other HEENT: Denies: no symptoms, eye pain, blurred vision, tearing, double vision, ear pain, ear discharge, nose pain, nose congestion, throat pain, throat swelling, mouth pain, mouth swelling, other Cardiovascular: Denies: no symptoms, chest pain, edema, irregular heart rate, lightheadedness, palpitations, syncope, other Respiratory: Denies: no symptoms, cough, orthopnea, shortness of breath, SOB with excertion, SOB at rest, sputum, stridor, wheezing, other Genitourinary: Denies: no symptoms, burning, discharge, frequency, flank pain, hematuria, incontinence, pain, urgency, other Allergies: Coded Allergies: No Known Allergies (Unverified , 07/18/13) Subjective Hemoglobin elevated. HIDA scan negative. Objective Labs Test 06/11/17 12:20 White Blood Count 6.5 K/UL (4.8-10.8) Red Blood Count 5.99 M/UL (4.70-6.10) Hemoglobin 17.1 G/DL (14.2-18.0) Hematocrit 51.6 % (42.0-52.0) Mean Corpuscular Volume 86 FL (80-99) Mean Corpuscular Hemoglobin 28.5 PG (27.0-31.0) Mean Corpuscular Hemoglobin Concent 33.1 G/DL (32.0-36.0) Red Cell Distribution Width 11.3 % (11.6-14.8) Platelet Count 234 K/UL (150-450) Mean Platelet Volume 9.1 FL (6.5-10.1) Neutrophils (%) (Auto) 62.6 % (45.0-75.0) Lymphocytes (%) (Auto) 25.5 % (20.0-45.0) Monocytes (%) (Auto) 8.6 % (1.0-10.0) Eosinophils (%) (Auto) 2.2 % (0.0-3.0) Basophils (%) (Auto) 1.1 % (0.0-2.0) Sodium Level 142 MMOL/L (136-145) Potassium Level 3.9 MMOL/L (3.5-5.1) Chloride Level 105 MMOL/L (98-107) Carbon Dioxide Level 25 MMOL/L (21-32) Anion Gap 12 mmol/L (5-15) Blood Urea Nitrogen 6 mg/dL (7-18) Creatinine 0.7 MG/DL (0.55-1.30) Estimat Glomerular Filtration Rate > 60 mL/min (>60) Glucose Level 93 MG/DL (74-106) Calcium Level 9.2 MG/DL (8.5-10.1) Total Bilirubin 0.9 MG/DL (0.2-1.0) Aspartate Amino Transf (AST/SGOT) 36 U/L (15-37) Alanine Aminotransferase (ALT/SGPT) 236 U/L (12-78) Alkaline Phosphatase 120 U/L (46-116) Total Protein 8.2 G/DL (6.4-8.2) Albumin 3.9 G/DL (3.4-5.0) Globulin 4.3 g/dL Albumin/Globulin Ratio 0.9 (1.0-2.7) Height (Feet): 5 Height (Inches): 7.00 Weight (Pounds): 170 Zaki Jesus Jun 13, 2017 23:02
== END 2017-06-11 14:00 | disposition home or self-care (01) ==
LOC: EMR 20:46 → 4E 22:17 → EDBEDREQ 22:39
DX: K80.20 Calculus of gallbladder without cholecystitis without obstruction (principal); D66 Hereditary factor VIII deficiency; I69.354 Hemiplegia and hemiparesis following cerebral infarction affecting left non-dominant side; N12 Tubulo-interstitial nephritis, not specified as acute or chronic; K21.9 Gastro-esophageal reflux disease without esophagitis; R74.0 Nonspecific elevation of levels of transaminase and lactic acid dehydrogenase [LDH]; K29.70 Gastritis, unspecified, without bleeding
CPT/HCPCS: 36415; 70450; 76700; 78266; 80053; 81003; 82150; 82248; 83690; 84484; 85025; 85610; 85730; 86703; 86704; 86705; 86708; 86709; 86803; 86850; 86900; 86901; 87340; 87517; 93005; 99283; 99285; J2405